=== PATIENT | male | born 1980 | race Caucasian/White ===

== ENCOUNTER 2018-08-12 15:05 | Emergency (ER) | payer SELFPAY ==
[2018-08-12] MEDS ORDERED: Ondansetron PF 4 MG/2 ML Vial ONE (15:30)
[2018-08-12 15:45] LABS: #Basophils 0.1 thou/uL (0.0-0.2); #Monocytes 0.8 thou/uL (0.11-0.59); #Neutrophils 4.8 thou/uL (1.40-6.50); %Eosinophils 0.2 % (0.0-10.0); %Lymphocytes 26.2 % (21.0-51.0); %Monocytes 10.1 % (0.0-10.0); %Neutrophils 62.5 % (42.0-75.0); Hemoglobin 12.3 g/dL (14.0-18.0); Mean Corpuscular HGB CONC 34.1 g/dL (32.0-36.0); Mean Corpuscular Hemoglobin 30.8 pg (27.0-31.0); Mean Corpuscular Volume 90.2 fL (78.0-98.0); Mean Platelet Volume 7.9 fL (7.4-10.4); Platelet Count 226 thou/uL (130-400); RBC Distribution Width 11.6 % (11.5-14.5); White Blood Cell (WBC) Count 7.7 thou/uL (4.8-10.8)
[2018-08-12 16:09] LABS: ALT (SGPT) 15 U/L (8-55); AST (SGOT) 25 U/L (5-34); Albumin 3.8 g/dL (3.5-5.0); Alkaline Phosphatase 75 U/L (40-150); Anion Gap 16 mmol/L (10-20); BUN (Urea Nitrogen) 50 mg/dL (8.9-20.6); Bilirubin, Total 0.8 mg/dL (0.2-1.2); Calc. Creatinine Clearance 0 mL/min (70-130); Carbon Dioxide 30 mmol/L (22-29); Chloride 93 mmol/L (98-107); Estimated GFR-MDRD 27; Globulin 2.7 g/dL (2.4-3.5); Glucose 145 mg/dL (70-105); Potassium 3.9 mmol/L (3.5-5.1); Protein, Total 6.5 g/dL (6.0-8.3); Sodium 135 mmol/L (136-145)
[2018-08-12 16:10] LABS: Base Excess-Venous 7.7 mmol/L (-2.0 to 3.0); Bicarbonate (HCO3v) 28.6 mmol/L (22.0-28.0); CO2 Tension (PvCO2) 28.6 mmHg (40.0-50.0); Calcium, Ionized 0.97 mmol/L (See Comments:); Chloride 94 mmol/L (98-107); Hemoglobin - Calc 13.3 g/dL (14.0-18.0); O2 Tension (PvO2) 46.4 mmHg (35.0-45.0); Potassium 3.3 mmol/L (3.5-5.1); Sodium 132 mmol/L (138-145); T. Carbon Dioxide 29.5 mmol/L (22.0-28.0); pH (Venous) 7.609 (7.320-7.430); vO2 Saturation-calc 89.6 % (60.0-85.0)
[2018-08-12] MEDS ORDERED: D5 1/2 NS w/20 mEq KCL 1,000 ML IV PRN (16:46)
[2018-08-12] MEDS ORDERED: Bisacodyl 5 MG TAB PO PRN (17:02)
[2018-08-12] MEDS ORDERED: Dextrose 5% in Water 1,000 ML IV PRN (17:02)
[2018-08-12] MEDS ORDERED: Ondansetron PF 4 MG/2 ML Vial IVP PRN (17:02)
[2018-08-12] MEDS ORDERED: HumaLOG 300 UNITS/3 ML VIAL SC PRN (17:02)
[2018-08-12] MEDS ORDERED: Dextrose 50% Abboject 50 ML SYRINGE SLOW IVP PRN (17:02)
[2018-08-12] MEDS ORDERED: Acetaminophen 325 MG TAB PO PRN (17:02)
[2018-08-12 17:07] LABS: Bilirubin Negative (Negative); Blood, Urine Negative (Negative); Clarity CLEAR (Clear); Glucose, Urine (Dipstick) Negative (Negative); Leukocyte Negative (Negative); Nitrite Negative (Negative); Protein, Urine (Dipstick) Trace mg/dL (Neg-Trace); Specific Gravity, Urine 1.008 (1.002-1.036); pH, Urine 7.5 (5.0-9.0)
[2018-08-12] MEDS ORDERED: NS 0.9% w/ 20 MEQ KCL 1,000 ML/1,000 ML BAG IV SCH (17:15)
[2018-08-12] MEDS ORDERED: Promethazine HCl 25 MG/ML VIAL ONE (17:15)
[2018-08-12] MEDS ORDERED: Dextrose 50% Abboject 50 ML SYRINGE ONE (17:20)
[2018-08-12] MEDS ORDERED: HUMULIN R 100 UNITS in Sodium Chloride 0.9% 100 ML IVPB SCH (18:00)
[2018-08-12] MEDS ORDERED: Insulin Glargine 18 UNITS in Pre-Filled Syringe SC SCH (18:15)
--- NOTE | 2018-08-12 18:26 | RAD ---
PORTABLE CHEST: 08/12/18 HISTORY: Possible infection. Lungs appear clear. No infiltrate identified. Heart and mediastinum unremarkable. IMPRESSION: No acute findings. POS: [facility]
--- NOTE | 2018-08-12 18:36 | HP ---
PRIMARY CARE PROVIDER: Debra Samayoa. CHIEF COMPLAINT: Nausea and vomiting. HISTORY OF PRESENT ILLNESS: Mr. Powell is a pleasant 38-year-old gentleman, who was seen at [facility] following transfer from [facility] on August 12, 2018. He reports that over the last 4 or 5 days, he has been having severe nausea and vomiting. He reports that he is unable to tolerate any diet. He denies any fevers or chills. He denies any chest pain. Denies any abdominal pain. He reports generalized weakness. REVIEW OF SYSTEMS: All other systems reviewed and found to be negative. PAST MEDICAL HISTORY: Diabetes mellitus type 1; chronic kidney disease stage 3, followed by Dr. 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 PAST SURGICAL HISTORY: Vitrectomy and left below-knee amputation. ALLERGIES: NO KNOWN DRUG ALLERGIES. CURRENT MEDICATIONS: He is on Lantus insulin 36 units at bedtime. He is also on Humalog insulin by sliding scale. SOCIAL HISTORY: He vapes. He denies alcohol use or recreational drug use. FAMILY HISTORY: Hypertension in his father. PHYSICAL EXAMINATION: GENERAL: On examination, Mr. Powell is awake and alert, not in acute distress. VITAL SIGNS: Blood pressure is 163/90, pulse 85, respiratory rate 18, and oxygen saturation 94% on room air. He is afebrile. EYES: No scleral icterus. No conjunctival pallor. ENT: Dry mucosal membranes. No oropharyngeal erythema or exudates. NECK: Supple, nontender, trachea is midline. RESPIRATORY: Accessory muscles of breathing are not active. Chest wall movements are symmetric bilaterally. LUNGS: Clear to auscultation without wheeze, rhonchi, or crepitations. CARDIOVASCULAR: S1 and S2 are heard, regular. Peripheral pulses palpable. No carotid bruit. No pericardial rub. ABDOMEN: Soft, nontender. Bowel sounds heard. No hepatomegaly. No splenomegaly. NEUROLOGIC: Cranial nerves 2 through 12 are intact. MUSCULOSKELETAL: The patient is able to move all four extremities. SKIN: No rashes or subcutaneous nodules. LYMPHATIC: No cervical lymphadenopathy. PSYCHIATRIC: Normal mood. Normal affect. The patient is oriented to person, place, and time. LABORATORY DATA: Mr. Powell's labs and investigations were reviewed. He has normal white count, normocytic anemia with hemoglobin 12.3, normal platelet count. Venous blood gas showing pH 7.6, pCO2 of 28.6, and pO2 of 46.4. Urinalysis that is positive for trace amount of ketones. Beta-hydroxybutyrate is mildly elevated at 1.07. He is hyponatremic with a sodium of 132; hypokalemic with a potassium of 3.3; he has elevated blood urea nitrogen of 50; elevated creatinine of 2.61, last known creatinine 2.77 earlier today and 2.31 on January 15, 2017. Had unremarkable liver profile. Anion gap is 16. Bicarb is elevated at 30. ASSESSMENT AND PLAN: Mr. Powell is a pleasant 38-year-old gentleman, who was seen at [facility] on August 12, 2018. His problem list includes: 1. Nausea and vomiting: Mr. Powell is presenting with nausea and vomiting of unknown etiology, could be secondary to viral gastroenteritis. He will be admitted to the hospital for further management. We will provide him intravenous fluids for dehydration. We will start him on clear fluid diet and see if he can tolerate it. 2. Acute on chronic stage 3 renal failure: We will provide hydration and recheck creatinine. This is most likely prerenal given his history of recent nausea and vomiting. We will also consult Nephrology Service for opinion and help with management. 3. Diabetes mellitus type 1: Initially, concern was regarding whether he had diabetic ketoacidosis. However, given the normal anion gap and elevated bicarb, this does not appear likely. He will be treated with intravenous fluids. He will also receive Lantus insulin. 4. Metabolic alkalosis: Most likely secondary to vomiting. We will provide intravenous hydration and recheck. Many thanks for allowing me to participate in your patient's care. Please feel free to contact me with any questions or concerns. LEVEL OF RISK: Moderate. LEVEL OF COMPLEXITY: Moderate. Job ID: [id number]
[2018-08-12] MEDS ORDERED: Heparin 5,000 UNITS/ML VIAL SC SCH (21:00)
--- NOTE | 2018-08-13 00:15 | CON ---
DATE OF CONSULTATION: REASON FOR CONSULTATION: Elevated creatinine. HISTORY OF PRESENT ILLNESS: This is a very pleasant 38-year-old gentleman being followed at the [facility] in [place]. He presents to the hospital with a 2-day history of nausea and vomiting. The patient denies chest pain. No orthopnea, no PND. The patient has a history of diabetes mellitus and has a history of CKD stage 3 to stage 4. Creatinine has been anywhere from 2 to 3 in the last few years. The patient has had significant vomiting, diarrhea, and an elevated bicarbonate. PAST MEDICAL HISTORY: Significant for diabetes mellitus type 2, history of diabetic, retinal detachment, vitrectomy, history of left knee below-knee amputation, history of cardiac CKD stage 3 to 4. ALLERGIES: NO KNOWN DRUG ALLERGIES. FAMILY HISTORY: Negative for ESRD. HOME MEDICATION: Medication list reviewed. REVIEW OF SYSTEMS: A 15-point review of system was performed negative except for positives noted above. REVIEW OF SYSTEMS: A 12-point review of systems was performed and was negative except for positives noted above. NECK: No swelling or lumps. NOSE: No epistaxis or discharge. EYES: No diplopia or pain. MUSCULOSKELETAL: No joint pain. NEUROPSYCHIATIC SYSTEMS: No suicidal ideation. No ideation. SKIN: Denies any rash or ulcer. CONSTITUTIONAL: No fever or chills. OBJECTIVE: See above. Awake, alert, in no acute distress. VITAL SIGNS: Have been reviewed. GENERAL APPEARANCE AND MENTAL STATUS: Fair. HEAD/NECK: Normocephalic. Atraumatic. EYES: EOMI. No deformity. EARS: Clear. No ulcers. NOSE: Intact. No lesions. MOUTH: Clear. No discharge. THROAT: Clear. No exudate. LUNGS: Clear. No crackles. CARDIAC: S1, S2. No rub. ABDOMEN: Benign. Bowel sounds positive. GENITALIA/RECTUM: Ugarte absent. BACK/EXTREMITIES: Edema 0+. NEUROLOGICAL: Alert and motor intact. LABORATORY DATA: Show potassium is 3.9. ASSESSMENT AND PLAN: 1. Chronic kidney disease, stage 4 with acute kidney injury, likely due to decreased effective arterial blood volume. I will continue normal saline at 50 mL/hour. 2. Hypertension, stable. 3. Anemia, stable. Medication based on GFR appropriate. No indication for dialysis at this time. Job ID: [id number]
[2018-08-13] MEDS ORDERED: Insulin Glargine 20 UNITS in Pre-Filled Syringe SC SCH (21:00)
--- NOTE | 2018-08-14 08:25 | DIS ---
DATE OF ADMISSION: 08/12/2018 DATE OF DISCHARGE: 08/12/2018 The patient left against medical advice on August 12, 2018. HOSPITAL COURSE: Mr. Powell is a pleasant 38-year-old gentleman, who was admitted to [facility] on August 12, 2018 for nausea and vomiting as well as acute on chronic stage 3 renal failure. Please refer to my history and physical note, dated August 12, 2018, for further details. Shortly after admission, Mr. Powell left the hospital against medical advice. Job ID: [id number]
== END 2018-08-12 18:59 | disposition short-term general hospital (02) ==
LOC: ERS 15:05
DX: T73.0XXA Starvation, initial encounter (principal); E87.6 Hypokalemia; F17.210 Nicotine dependence, cigarettes, uncomplicated; E10.9 Type 1 diabetes mellitus without complications; Z79.4 Long term (current) use of insulin; Z79.899 Other long term (current) drug therapy
CPT/HCPCS: 36415; 36416; 71045; 82010; 82330; 82803; 96361; 96374; 96375; J1815; J1825; J2405; J2550; J7050

== ENCOUNTER 2019-07-10 14:07 | Inpatient (IN) | payer MEDICAID, OTHER ==
[2019-07-10 15:44] LABS: Anion Gap 19 mmol/L (10-20); BUN (Urea Nitrogen) 60 mg/dL (8.9-20.6); Calc. Creatinine Clearance 0 mL/min (70-130); Calcium 9.7 mg/dL (7.8-10.44); Carbon Dioxide 24 mmol/L (22-29); Chloride 105 mmol/L (98-107); Estimated GFR-MDRD 17; Glucose 211 mg/dL (70-105); Potassium 3.8 mmol/L (3.5-5.1); Sodium 144 mmol/L (136-145)
[2019-07-10] MEDS ORDERED: Promethazine HCl 25 MG/ML VIAL IM/IV PRN (16:12)
[2019-07-10] MEDS ORDERED: D5 1/2 NS w/20 mEq KCL 1,000 ML IV PRN (16:13)
[2019-07-10] MEDS ORDERED: Sodium Chloride 0.9% 1,000 ML IV PRN ×4 (16:13)
[2019-07-10] MEDS ORDERED: Dextrose 5 %-0.45 % NaCl 1,000 ML IV PRN (16:13)
[2019-07-10] MEDS ORDERED: CCU Electrolyte Replacement 1 EACH IVPB ONE (16:13)
[2019-07-10] MEDS ORDERED: NS 0.9% w/ 20 MEQ KCL 1,000 ML IV PRN ×2 (16:13)
[2019-07-10] MEDS ORDERED: HUMULIN R 100 UNITS in Sodium Chloride 0.9% 100 ML IVPB SCH (16:15)
[2019-07-10] MEDS ORDERED: Loperamide HCl 2 MG CAP PO PRN (16:16)
[2019-07-10] MEDS ORDERED: Ondansetron ODT 4 MG TAB PO PRN (16:16)
[2019-07-10] MEDS ORDERED: Acetaminophen 325 MG TAB PO PRN (16:16)
[2019-07-10] MEDS ORDERED: Bisacodyl 5 MG TAB PO PRN (16:16)
[2019-07-10] MEDS ORDERED: HYDROcodone/Acetaminophen 7.5/325 mg Tablet PO PRN (16:16)
[2019-07-10] MEDS ORDERED: Calcium Carbonate 500 MG ChewTAB PO PRN (16:16)
[2019-07-10] MEDS ORDERED: HYDROcodone/Acetaminophen 5/325 mg Tablet PO PRN (16:16)
[2019-07-10] MEDS ORDERED: Potassium Phosphate 9 MMOL in Sodium Chloride 0.9% 100 ML IVPB PRN (16:17)
[2019-07-10] MEDS ORDERED: CCU ELECTROLYTE REPLACEMENT PROTOCOL FS PRN (16:17)
[2019-07-10] MEDS ORDERED: PHOS-NAK 1 PKT PACK PO PRN ×2 (16:17)
[2019-07-10] MEDS ORDERED: Potassium Chloride 40 MEQ in Premix Bag 1 BAG IVPB PRN (16:17)
[2019-07-10] MEDS ORDERED: Magnesium Oxide 400 MG TAB PO PRN ×2 (16:17)
[2019-07-10] MEDS ORDERED: Potassium Chloride 40 MEQ in Sodium Chloride 0.9% 250 ML 250 ML IVPB PRN (16:17)
[2019-07-10] MEDS ORDERED: Potassium Phosphate 15 MMOL in Sodium Chloride 0.9% 250 ML 250 ML IV PRN (16:17)
[2019-07-10] MEDS ORDERED: Potassium Phosphate 12 MMOL in Sodium Chloride 0.9% 250 ML 250 ML IV PRN (16:17)
[2019-07-10] MEDS ORDERED: Potassium Chloride 20 MEQ TAB PO PRN (16:17)
[2019-07-10] MEDS ORDERED: Magnesium 2 GM/50 ML 2 GM in Premix Bag 1 BAG IVPB PRN (16:17)
--- NOTE | 2019-07-10 16:59 | CT ---
CT OF THE ABDOMEN AND PELVIS WITHOUT IV CONTRAST INDICATION: History of DKA and abdominal pain COMPARISON: CT the abdomen and pelvis without contrast dated November 15, 2011 FINDINGS: The lack of IV contrast limits evaluation of the solid organs of the abdomen and pelvis. ABDOMEN: Lung bases: Clear Liver: No focal lesion. Gallbladder: Normal appearing. Pancreas: Normal. Adrenal glands: Normal. Spleen: Normal. Kidneys and ureters: Normal. No hydronephrosis. Vasculature: There are mild vascular calcifications seen involving the visualized vasculature. Lymph nodes:No lymphadenopathy. Free fluid in abdomen:No free fluid is evident. PELVIS: Small and large bowel: Normal Appendix:Normal Bladder: Normal. Rectal and perirectal soft tissues:Normal. Reproductive structures: Normal. Free fluid in pelvis: No free fluid is evident. Lymphadenopathy pelvis: No lymphadenopathy is evident. Osseous structures: No acute osseous abnormality. No destructive osteolytic or osteoblastic lesion i s identified. There is scattered degenerative and osteoarthritic changes. Soft tissues:Normal. IMPRESSION: 1. No acute abnormality.
[2019-07-10] MEDS ORDERED: D5 1/2 NS w/20 mEq KCL 1,000 ML IV SCH (17:00)
[2019-07-10 17:20] LABS: Anion Gap 19 mmol/L (10-20); BUN (Urea Nitrogen) 60 mg/dL (8.9-20.6); Calc. Creatinine Clearance 0 mL/min (70-130); Calcium 9.7 mg/dL (7.8-10.44); Carbon Dioxide 23 mmol/L (22-29); Chloride 106 mmol/L (98-107); Estimated GFR-MDRD 17; Glucose 159 mg/dL (70-105); Potassium 3.9 mmol/L (3.5-5.1); Sodium 144 mmol/L (136-145)
--- NOTE | 2019-07-10 18:52 | ULT ---
Renal ultrasound: 07/10/2019 COMPARISON:None available HISTORY:Acute kidney insufficiency TECHNIQUE: Multiplanar grayscale sonographic imaging of the kidneys and urinary bladder obtained. FINDINGS: The right kidney [id number] x 4.7 x 5.1 cm and demonstrates no stone, hydronephrosis, or mass. The left kidney [id number] x 5.6 x 5.9 cm and demonstratesno stone, hydronephrosis, or mass lesion. The urinary bladderappears grossly unremarkable. IMPRESSION:No acute findings
[2019-07-10] MEDS ORDERED: Metoclopramide HCl 10 MG/2 ML VIAL ONE (19:38)
[2019-07-10] MEDS: Metoclopramide HCl 10 MG/2 ML VIAL IVP PRN (19:55)
[2019-07-10 20:56] LABS: Anion Gap 17 mmol/L (10-20); BUN (Urea Nitrogen) 59 mg/dL (8.9-20.6); Calc. Creatinine Clearance 0 mL/min (70-130); Calcium 9.2 mg/dL (7.8-10.44); Carbon Dioxide 26 mmol/L (22-29); Chloride 106 mmol/L (98-107); Estimated GFR-MDRD 19; Glucose 178 mg/dL (70-105); Potassium 3.9 mmol/L (3.5-5.1); Sodium 145 mmol/L (136-145)
--- NOTE | 2019-07-10 21:00 | PDOC.HHP ---
Hospitalist HPI - History of Present Illness DKA History of Present Illness: 39-year-old gentleman with past medical history of type I diabetes, hypertension , hyperlipidemia, diabetic gastroparesis, and left below the knee amputation presents with five days of nausea vomiting and diarrhea, diagnosed with diabetic ketoacidosis. Patient was transferred to [facility] on 07/10/2019 with diabetic ketoacidosis. Initially on presentation patient's blood sugars for greater than 600 and he met criteria for diabetic ketoacidosis. I find the patient in the emergency department he is laying flat in bed in mild acute distress, his mother is at bedside able to aid in history. Patient tells me that he is at five days of nausea, vomiting, and diarrhea. Diarrhea has been watery without blood or black. Vomitus has been yellow/ green bilious without blood or black. Patient does state that he has been in contact with sick kids at home. Patient diagnosed with acute kidney injury present on admission. I ordered a CT scan of the abdomen and pelvis, please see full report for details, there is no acute intra-abdominal pathology to explain patient symptoms. Patient with viral gastroenteritis and diabetic ketoacidosis present on admission. Hospitalist ROS - Review of Systems All other systems reviewed; all pertinent +/- noted in HPI/Subj - Medication Medications: Active Medications Generic Name Dose Route Start Last Admin Trade Name Freq PRN Reason Stop Dose Admin Metoclopramide HCl 10 mg 07/10/19 16:12 07/10/19 19:55 Reglan IVP 10 mg Q6H PRN Administration Nausea/Vomiting Hospitalist History - Past Medical History Source: patient, family, old records Cardiac: reports: HTN, Hyperlipidemia Gastrointestinal: reports: Other (DM gastroparesis) Musculoskeletal: reports: Other (Left BKA) - Past Surgical History Past Surgical History: reports: Other (Left BKA) - Social History Smoking Status: Current every day smoker (E-cigarettes) Alcohol: reports: None Drugs: reports: none Living Situation: With Family Domestic Violence: Negative Activity level: uses cane/walker - Exam General Appearance: ill appearing Eye: PERRL ENT: normocephalic atraumatic, moist mucosa Neck: supple, symmetric, no lymphadenopathy Heart: no murmur, no gallops, no rubs, normal peripheral pulses Respiratory: CTAB, no wheezes, no rales, no ronchi, normal chest expansion, no tachypnea Gastrointestinal: soft, non-tender, non-distended, no guarding, no rigidity Extremities: no edema Skin: no lesions, no rashes Skin - other findings: Right foot no lesions or infections Neurological: cranial nerve grossly intact, normal sensation to touch, no focal deficits Musculoskeletal: generalized weakness Musculoskeletal - other findings: Left BKA. Psychiatric: normal affect, normal behavior, A&O x 3 Hospitalist Results - Labs Result Diagrams: 07/10/19 16:42 Lab results: Sodium 144 mmol/L (136-145) 07/10/19 16:42 Potassium 3.9 mmol/L (3.5-5.1) 07/10/19 16:42 Chloride 106 mmol/L (98-107) 07/10/19 16:42 Carbon Dioxide 23 mmol/L (22-29) 07/10/19 16:42 BUN 60 mg/dL (8.9-20.6) H 07/10/19 16:42 Creatinine 3.87 mg/dL (0.7-1.3) H 07/10/19 16:42 Glucose 159 mg/dL (70-105) H 07/10/19 16:42 Calcium 9.7 mg/dL (7.8-10.44) 07/10/19 16:42 - Radiology Interpretation CT scan - abdomen Status: image reviewed by sc Hospitalist H&P A/P - Problem (1) DKA (diabetic ketoacidoses) Code(s): E11.10 - TYPE 2 DIABETES MELLITUS WITH KETOACIDOSIS WITHOUT COMA Status: Acute (2) HTN (hypertension) Code(s): I10 - ESSENTIAL (PRIMARY) HYPERTENSION Status: Acute (3) HLD (hyperlipidemia) Code(s): E78.5 - HYPERLIPIDEMIA, UNSPECIFIED Status: Acute (4) Gastroparesis due to DM Code(s): E11.43 - TYPE 2 DIABETES W DIABETIC AUTONOMIC (POLY)NEUROPATHY; K31.84 - GASTROPARESIS Status: Acute (5) Viral gastroenteritis Code(s): A08.4 - VIRAL INTESTINAL INFECTION, UNSPECIFIED Status: Acute (6) GIOVANA (acute kidney injury) Code(s): N17.9 - ACUTE KIDNEY FAILURE, UNSPECIFIED Status: Acute (7) Diabetes Code(s): E11.9 - TYPE 2 DIABETES MELLITUS WITHOUT COMPLICATIONS Status: Acute Qualifiers: Diabetes mellitus type: type 1 (8) Intractable nausea and vomiting Code(s): R11.2 - NAUSEA WITH VOMITING, UNSPECIFIED Status: Acute - Plan Plan: Plan: admit to intermediate medical care unit DKA protocol insulin drip replace electrolytes as needed IV fluid resuscitation for acute kidney injury Renal US negative for obstructive process to explain GIOVANA CT scan of of the abdomen and pelvis demonstrates no acute intra-abdominal pathology to to explain nausea, vomiting, and diarrhea viral gastroenteritis will need to run its course Stress reactive leukocytosis at 14k from transferring facility no indication for antibiotics Add UA and CXR No skin infections on the feet or stump continue home medications as able Hold Diogo inh and statin with GIOVANA symptomatic control of nausea and vomiting Patient with DM gastroparesis blood pressure control blood sugar control GI prophylaxis DVT prophylaxis
[2019-07-10] MEDS ORDERED: Nicotine 14 MG PATCH TD PRN (21:21)
[2019-07-10] MEDS ORDERED: Ondansetron PF 4 MG/2 ML Vial ONE (21:59)
--- NOTE | 2019-07-10 22:18 | RAD ---
Portable frontal chest radiograph: 07/10/2019 COMPARISON: 07/10/2019 HISTORY: Short of breath FINDINGS: Lungs are clear. Heart and mediastinal contours appear within normal limits. IMPRESSION: No acute findings.
[2019-07-10] MEDS ORDERED: DC Electrolyte Protocol FS ONE (23:14)
[2019-07-10] MEDS ORDERED: Insulin Regular 300 UNITS/3 ML VIAL SC PRN (23:16)
[2019-07-10] MEDS ORDERED: Dextrose 50% Abboject 50 ML SYRINGE SLOW IVP PRN (23:16)
[2019-07-10] MEDS ORDERED: Dextrose 5% in Water 1,000 ML IV PRN (23:16)
--- NOTE | 2019-07-10 23:19 | PDOC.EVN ---
Event Note - Event Note Event Note: Will change Insulin drip tp SQ. Added sliding scale. DC electrolye protocol
[2019-07-10] MEDS ORDERED: Insulin Glargine 10 UNITS in Pre-Filled Syringe 1 EACH SC SCH (23:45)
[2019-07-11] MEDS: Ondansetron PF 4 MG/2 ML Vial IVP PRN ×3 (00:01→16:28)
[2019-07-11 00:30] LABS: Bacteria/HPF None Seen HPF (None Seen); Bilirubin Negative (Negative); Blood, Urine Trace (Negative); Clarity Clear (Clear); Glucose, Urine (Dipstick) >=1000 mg/dL (Negative); Leukocyte Negative Leu/uL (Negative); Nitrite Negative (Negative); Protein, Urine (Dipstick) 70 mg/dL (Neg-Trace); RBC/HPF 0-3 HPF (0-3); Squamous Epithelial None Seen HPF (0-3); Urobilinogen Normal mg/dL (Less than 2); WBC/HPF 0-3 HPF (0-3)
[2019-07-11 00:32] LABS: Urine Culture Reflex No No
[2019-07-11] MEDS ORDERED: Metoprolol Tartrate 25 MG TAB PO SCH (01:00)
[2019-07-11] MEDS: Heparin 5,000 UNITS/ML VIAL SC SCH ×4 (01:08→21:14)
[2019-07-11] MEDS: Sodium Chloride 0.45% 1,000 ML IV SCH ×4 (01:20→18:13)
[2019-07-11] MEDS: Famotidine 20 MG TAB PO SCH ×2 (01:44→21:12)
[2019-07-11] MEDS: Promethazine HCl 25 MG in Sodium Chloride 0.9% 50 ML IVPB PRN ×3 (03:23→19:39)
[2019-07-11] MEDS: Insulin Regular 300 UNITS/3 ML VIAL SC PRN ×3 (05:50→13:08)
[2019-07-11 06:19] LABS: #Lymphocytes 1.7 thou/uL (1.20-3.40); #Monocytes 0.9 thou/uL (0.11-0.59); #Neutrophils 13.3 thou/uL (1.40-6.50); %Basophils 0.1 % (0.0-1.0); %Eosinophils 0.1 % (0.0-10.0); %Lymphocytes 10.8 % (21.0-51.0); %Monocytes 5.9 % (0.0-10.0); %Neutrophils 83.2 % (42.0-75.0); Hemoglobin 10.9 g/dL (14.0-18.0); Mean Corpuscular HGB CONC 32.3 g/dL (32.0-36.0); Mean Corpuscular Hemoglobin 30.2 pg (27.0-31.0); Mean Corpuscular Volume 93.3 fL (78.0-98.0); Mean Platelet Volume 9.1 fL (7.4-10.4); Platelet Count 208 thou/uL (130-400); RBC Distribution Width 11.9 % (11.5-14.5); Red Blood Cell (RBC) Count 3.62 mill/uL (4.70-6.10)
[2019-07-11 06:48] LABS: Anion Gap 17 mmol/L (10-20); BUN (Urea Nitrogen) 57 mg/dL (8.9-20.6); Calc. Creatinine Clearance 0 mL/min (70-130); Calcium 9.1 mg/dL (7.8-10.44); Carbon Dioxide 27 mmol/L (22-29); Chloride 101 mmol/L (98-107); Estimated GFR-MDRD 20; Glucose 232 mg/dL (70-105); Potassium 3.9 mmol/L (3.5-5.1); Sodium 141 mmol/L (136-145)
[2019-07-11] MEDS ORDERED: Insulin Glargine 10 UNITS in Pre-Filled Syringe 1 EACH SC SCH (09:00)
[2019-07-11] MEDS: Aspirin Chewable 81 MG TAB PO SCH ×2 (09:17→16:51)
[2019-07-11] MEDS: Metoprolol Tartrate 25 MG TAB PO SCH ×3 (09:17→21:13)
[2019-07-11] MEDS: Insulin Glargine 14 UNITS in Pre-Filled Syringe 1 EACH SC SCH (09:22)
[2019-07-11 10:35] VITALS: BMI 26.8
--- NOTE | 2019-07-11 15:22 | CON ---
DATE OF CONSULTATION: REASON FOR CONSULTATION: CKD. HISTORY OF PRESENT ILLNESS: This is a very pleasant 39-year-old gentleman, presented with a creatinine of 4, which dropped to 3.3. The patient has known CKD and has been followed up in the CKD, iatrogenic. The patient was admitted for DKA with nausea and vomiting. The patient's creatinine has improved over the last few days. PAST MEDICAL HISTORY: Hypertension, diabetes mellitus, history of diarrhea, gastroparesis, left below-knee amputation, and history of left BKA. SOCIOECONOMIC HISTORY: No alcohol or drug abuse. FAMILY HISTORY: Negative for ESRD. ALLERGIES: REVIEWED. MEDICATIONS: Home medications list reviewed. Hospital medications list reviewed. REVIEW OF SYSTEMS: Fifteen-point review of system was performed and negative except for positives noted above. HEENT: Eyes intact, no diplopia. Ears: No hearing loss or earache. Nose: No discharge or bleeding. CHEST: No cough or phlegm. ABDOMEN: No nausea or vomiting. GENITOURINARY: No hematuria. No Ugarte catheter. MUSCULOSKELETAL: No low back pain. No joint swelling or pain. NEUROLOGICAL: No syncope. No seizures. SKIN: No complaints of rash or itching. PSYCHIATRIC: No depression. CONSTITUTIONAL: No weight loss or loss of appetite. PHYSICAL EXAMINATION: GENERAL: The patient is awake and alert. VITAL signs: Afebrile, pulse 95, breathing at 16, blood pressure 160/84. HEENT: Head normocephalic and atraumatic. Eyes intact, no ulcers. Nose intact, no ulcers. Ears intact, no ulcers. NECK: Supple. No JVD. CHEST: Symmetrical and clear. CARDIOVASCULAR: Shows S1 and S2, no rub, no murmur. GASTROINTESTINAL: Abdomen is soft, bowel sounds positive. EXTREMITIES: Show no edema or ulcers. SKIN: Shows no rash or petechiae. MUSCULOSKELETAL: Shows no joint swelling or stiffness. GENITOURINARY: Shows no Ugarte or CVA tenderness. NEUROLOGIC: Motor intact. Cranial nerves intact. LABORATORY DATA: Reviewed. ASSESSMENT AND PLAN: 1. Stage 4 chronic kidney disease, stable. 2. Hypertension, stable. I would recommend titrating medications. 3. Acute kidney injury, improved. No indication for dialysis. Job ID: [id number]
--- NOTE | 2019-07-11 15:51 | PDOC.HOSPP ---
- Subjective Encounter Date: 07/11/19 Encounter Time: 11:56 Subjective: still nauseated. no po intake yet. d/w pt, mom and rn. - Objective Vital Signs & Weight: Vital Signs (12 hours) Temp Pulse Resp BP Pulse Ox 07/11/19 11:57 98.7 F 94 20 178/89 H 07/11/19 08:09 98.8 F 87 20 164/84 H 96 07/11/19 04:35 98.8 F 91 18 170/83 H 95 07/11/19 04:00 98 Weight Weight 250 lb 0.067 oz I&O: 07/10/19 07/11/19 07/12/19 06:59 06:59 06:59 Intake Total 2550 Output Total 1800 Balance 750 Result Diagrams: 07/11/19 05:54 07/11/19 05:54 Additional Labs: Accuchecks 07/11/19 07/11/19 07/11/19 11:18 08:12 05:17 POC Glucose 158 H 202 H 235 H 07/10/19 07/10/19 07/10/19 23:24 22:32 21:28 POC Glucose 177 H 158 H 200 H 07/10/19 07/10/19 07/10/19 20:23 19:20 17:48 POC Glucose 157 H 174 H 143 H 07/10/19 16:59 POC Glucose 139 H Hospitalist ROS - Medication Medications: Active Medications Generic Name Dose Route Start Last Admin Trade Name Freq PRN Reason Stop Dose Admin Aspirin 81 mg 07/11/19 09:00 07/11/19 09:17 Aspirin Chewable PO 81 mg DAILY FABIO Administration Famotidine 20 mg 07/10/19 21:00 07/11/19 01:44 Pepcid PO Not Given QPM FABIO Heparin Sodium (Porcine) 5,000 units 07/10/19 21:00 07/11/19 09:17 Heparin SC 5,000 units TID FABIO Administration Sodium Chloride 1,000 mls @ 150 mls/hr 07/10/19 23:30 07/11/19 09:15 1/2 Normal Saline IV 1,000 mls .Q6H40M FABIO Administration Promethazine HCl 25 mg/ Sodium 51 mls @ 204 mls/hr 07/11/19 03:02 07/11/19 13 :09 Chloride IVPB 51 mls Q6H PRN Administration Nausea Insulin Glargine 14 units/ 0.14 mls @ 0 mls/hr 07/11/19 09:00 07/11/19 09:22 Miscellaneous Medication SC 0.14 mls QAM FABIO Administration Insulin Human Regular 0 units 07/10/19 23:16 07/11/19 13:08 Humulin R SC 2 unit .MODERATE SLIDING SC PRN Administration Moderate Correctional Scale Metoclopramide HCl 10 mg 07/10/19 16:12 07/10/19 19:55 Reglan IVP 10 mg Q6H PRN Administration Nausea/Vomiting Metoprolol Tartrate 25 mg 07/11/19 09:00 07/11/19 09:17 Lopressor PO 25 mg BID FABIO Administration Ondansetron HCl 4 mg 07/10/19 16:16 07/11/19 09:15 Zofran IVP 4 mg Q6H PRN Administration Nausea/Vomiting Sodium Chloride 10 ml 07/11/19 09:00 07/11/19 09:21 Flush - Normal Saline IVF Not Given Q12HR FABIO - Exam General Appearance: NAD, awake alert Eye: PERRL ENT: normocephalic atraumatic Neck: supple Heart: RRR Respiratory: CTAB Gastrointestinal: normal bowel sounds Hosp A/P - Plan (1) DKA (diabetic ketoacidoses) Code(s): E11.10 - TYPE 2 DIABETES MELLITUS WITH KETOACIDOSIS WITHOUT COMA Status: Acute (2) HTN (hypertension) Code(s): I10 - ESSENTIAL (PRIMARY) HYPERTENSION Status: Acute (3) HLD (hyperlipidemia) Code(s): E78.5 - HYPERLIPIDEMIA, UNSPECIFIED Status: Acute (4) Gastroparesis due to DM Code(s): E11.43 - TYPE 2 DIABETES W DIABETIC AUTONOMIC (POLY)NEUROPATHY; K31.84 - GASTROPARESIS Status: Acute (5) Viral gastroenteritis Code(s): A08.4 - VIRAL INTESTINAL INFECTION, UNSPECIFIED Status: Acute (6) GIOVANA (acute kidney injury) Code(s): N17.9 - ACUTE KIDNEY FAILURE, UNSPECIFIED Status: Acute (7) Diabetes Code(s): E11.9 - TYPE 2 DIABETES MELLITUS WITHOUT COMPLICATIONS Status: Acute Qualifiers: Diabetes mellitus type: type 1 (8) Intractable nausea and vomiting Code(s): R11.2 - NAUSEA WITH VOMITING, UNSPECIFIED Status: Acute DKA protocol insulin drip---STopped replace electrolytes as needed IV fluid resuscitation for acute kidney injury Renal US negative for obstructive process to explain GIOVANA---neg CT scan of of the abdomen and pelvis demonstrates no acute intra-abdominal pathology to to explain nausea, vomiting, and diarrhea viral gastroenteritis will need to run its course Stress reactive leukocytosis at 14k---->16K on no indication for antibiotics DM gastroparesis blood pressure control blood sugar control am labs CLD -- advqance to diabetic diet, when tolerated.
[2019-07-11] MEDS: Metoclopramide HCl 10 MG/2 ML VIAL IVP PRN (16:28)
[2019-07-11] MEDS ORDERED: Insulin Glargine 14 UNITS in Pre-Filled Syringe 1 EACH SC SCH (21:00)
[2019-07-11] MEDS ORDERED: FLU VACC QS2019-20(6MOS UP)/PF 60 MCG/0.5 ML SYRINGE IM ONE (21:00)
[2019-07-12] MEDS: Ondansetron PF 4 MG/2 ML Vial IVP PRN ×2 (00:04→10:25)
[2019-07-12] MEDS: Metoclopramide HCl 10 MG/2 ML VIAL IVP PRN ×2 (00:04→07:57)
[2019-07-12] MEDS ORDERED: hydrALAZINE 20 MG/ML VIAL SLOW IVP SCH (00:45)
[2019-07-12] MEDS: Sodium Chloride 0.45% 1,000 ML IV SCH ×2 (01:18→08:49)
[2019-07-12] MEDS: Promethazine HCl 25 MG in Sodium Chloride 0.9% 50 ML IVPB PRN (04:44)
[2019-07-12] MEDS: Insulin Regular 300 UNITS/3 ML VIAL SC PRN ×2 (05:30→12:51)
[2019-07-12 05:51] LABS: #Lymphocytes 1.1 thou/uL (1.20-3.40); #Monocytes 0.7 thou/uL (0.11-0.59); #Neutrophils 6.8 thou/uL (1.40-6.50); %Basophils 0.3 % (0.0-1.0); %Eosinophils 0.1 % (0.0-10.0); %Lymphocytes 12.6 % (21.0-51.0); %Monocytes 8.2 % (0.0-10.0); %Neutrophils 78.8 % (42.0-75.0); Hemoglobin 10.4 g/dL (14.0-18.0); Mean Corpuscular HGB CONC 33.5 g/dL (32.0-36.0); Mean Corpuscular Hemoglobin 31.3 pg (27.0-31.0); Mean Corpuscular Volume 93.4 fL (78.0-98.0); Mean Platelet Volume 9.2 fL (7.4-10.4); Platelet Count 176 thou/uL (130-400); RBC Distribution Width 11.5 % (11.5-14.5); Red Blood Cell (RBC) Count 3.33 mill/uL (4.70-6.10); White Blood Cell (WBC) Count 8.6 thou/uL (4.8-10.8)
[2019-07-12] MEDS ORDERED: Labetalol HCl 100 MG/20 ML VIAL SLOW IVP PRN (05:53)
[2019-07-12 06:11] LABS: Anion Gap 17 mmol/L (10-20); BUN (Urea Nitrogen) 42 mg/dL (8.9-20.6); Calc. Creatinine Clearance 67 mL/min (70-130); Calcium 8.3 mg/dL (7.8-10.44); Carbon Dioxide 26 mmol/L (22-29); Chloride 101 mmol/L (98-107); Estimated GFR-MDRD 31; Glucose 186 mg/dL (70-105); Potassium 3.6 mmol/L (3.5-5.1); Sodium 140 mmol/L (136-145)
[2019-07-12] MEDS: Heparin 5,000 UNITS/ML VIAL SC SCH (08:47)
[2019-07-12] MEDS: Insulin Glargine 14 UNITS in Pre-Filled Syringe 1 EACH SC SCH (08:50)
--- NOTE | 2019-07-12 11:39 | PRG ---
DATE OF SERVICE: 07/12/2019 SUBJECTIVE: A 39-year-old male being seen for acute kidney injury. The patient denied any nausea, vomiting, or chest pain. PHYSICAL EXAMINATION: General: The patient is awake and alert. VITAL SIGNS: Afebrile, pulse 75, breathing at 16, and blood pressure 145/86. HEENT: Head normocephalic and atraumatic. Eyes intact, no ulcers. Nose intact, no ulcers. Ears intact, no ulcers. NECK: Supple. No JVD. CHEST: Symmetrical and clear. CARDIOVASCULAR: Shows S1 and S2, no rub, no murmur. GASTROINTESTINAL: Abdomen is soft, bowel sounds positive. EXTREMITIES: Show no edema or ulcers. SKIN: Shows no rash or petechiae. MUSCULOSKELETAL: Shows no joint swelling or stiffness. GENITOURINARY: Shows no Ugarte or CVA tenderness. NEUROLOGIC: Motor intact. Cranial nerves intact. LABORATORY DATA: Reviewed. ASSESSMENT AND PLAN: 1. Acute kidney injury, improved. 2. Hypertension, stable. 3. Anemia, stable. 4. Chronic kidney disease stage 3, stable. No indication for dialysis. Continue hydration. Job ID: [id number]
[2019-07-12 11:59] VITALS: BP 151/68; TEMP 99.1
[2019-07-12] MEDS: Metoprolol Tartrate 25 MG TAB PO SCH (13:41)
[2019-07-12] MEDS: Aspirin Chewable 81 MG TAB PO SCH (13:41)
--- NOTE | 2019-07-12 15:24 | DIS ---
DATE OF ADMISSION: 07/10/2019 DATE OF DISCHARGE: 07/12/2019 DISCHARGE DIAGNOSES: 1. DKA. 2. Hypertension, hyperlipidemia, gastroparesis due to type 2 diabetes mellitus. 3. Viral gastroenteritis, acute kidney injury. 4. Intractable nausea, vomiting. DISCHARGE MEDICATIONS: 1. Zofran 4 mg every 6 hours as needed for nausea and vomiting. 2. Aspirin 81 mg daily. 3. Lantus 36 units at nighttime. 4. Sliding scale lispro insulin. 5. Lisinopril 20 mg daily. 6. Losartan 25 mg daily. 7. Reglan 10 mg daily. 8. Toprol-XL 12.5 mg daily. PHYSICAL EXAMINATION: On the day of discharge; GENERAL: The patient may still have some nausea. His creatinine is improved. CARDIOVASCULAR: Regular rate and rhythm without murmurs, rubs, or gallops. LUNGS: Clear to auscultation bilaterally. No wheezing, rales, or rhonchi. ABDOMEN: Soft, nontender, nondistended. Good bowel sounds. HOSPITAL COURSE: This is a 39-year-old male with a history of type 1 diabetes mellitus, hypertension, gastroparesis, and below-knee amputation, admitted with nausea, vomiting, diarrhea consistent with DKA. The patient was started on DKA protocol. While the workup was still ongoing, he did receive aggressive IV hydration and his creatinine improved from 4.0 to 2.32. On the , the patient wants to go home. He does not want to continue his medical management currently. Despite him nauseated and still not taking any meals, he preferred to be at home and take the nausea medications. The patient is discharged, however, his workup is incomplete and he has not started to have any p.o. intake yet. DISCHARGE INSTRUCTIONS: 1. Activity as tolerated. 2. Diabetic diet. 3. Follow up with primary care physician within a week. 4. If he still have ongoing nausea, not able to have p.o. intake, consider coming back to the ER. TIME SPENT: Discharge time took over 30 minutes. Job ID: [id number]
--- NOTE | 2019-07-13 06:23 | PQF ---
YUNIOR HARRIS SOUNDARI [id number] [facility] [id number] CLINICAL DOCUMENTATION CLARIFICATION FORM: POST DISCHARGE Addendum to original discharge summary date: ____ Late entry note date: __ DATE: 07/13/2019 ATTN: Marcy Davis Please exercise your independent, professional judgment in responding to the clarification form. Clinical indicators are provided on the bottom of this form for your review In your clinical opinion based on clinical findings below, can you please identify the condition as the reasonf for Inpatient admission if due to: Please check appropriate box(s): [ x] DKA [ ] GIOVANA [ x] Viral Gastroenteritis [ ] Other diagnosis [ ] Unable to determine In addition, please specify: Present on Admission (POA): [ ] Yes [ ] No [ ] Unable to determine For continuity of documentation, please document condition throughout progress notes and discharge summary. Thank You. CLINICAL INDICATORS - SIGNS / SYMPTOMS / LABS Laboratory 07/10 Glucose 242; 139; 143; 174 Laboratory 07/10 Creatine 4.00; 3.87, BUN 60 H&P p1 07/10 Dr Fay presented five days of nausea, vomiting and diarrhea H&P p1 07/10 Dr Fay transferred to [facility] on 2019 with diabetic ketoacidosis. Initially on presentation patients blood sugars for greater than 600 and he met criteria for diabetic ketoacidosis. H&P p1 07/10 Dr Fay Patient tells me that he is at five days of nausea, vomiting, and diarrhea. Diarrhea has been watery without blood or black. Vomitus has been yellow/ green bilious without blood or black. Patient does state that he has been in contact with sick kids at home H&P p1 07/10 Dr Fay Patient diagnosed with acute kidney injury present on admission. H&P p1 07/10 Dr Fay Patient with viral gastroenteritis and diabetic ketoacidosis present on admission. RISK FACTORS H&P p1 07/10 Type 1DM H&P p1 07/10 HTN H&P p1 07/10 Hyperlipidemia H&P p1 07/10 Diabetic Gastroparesis H&P p1 07/10 CKD TREATMENTS: JUL 15 Insulin 14 units drip JUL 15 IV Reglan 10mg JUL 15 IV Zofran 4mg JUL 15 IVF NS Bolus 1L Ordered a CT scan of the abdomen and pelvis 07/10 Ordered a Renal US 07/10 H&P p4 07/10 Symptomatic control for N/V H&P p4 07/10 blood sugar control H&P p4 07/10 replaced electrolytes as needed H&P p4 07/10 IV fluid resuscitation Nephrology consult 07/11 Suleiman Blake (This form is maintained as a part of the permanent medical record) 2014 [employer] All Rights Reserved [email or web address]
== END 2019-07-12 13:28 | disposition home or self-care (01) | DRG 391 ==
LOC: ERS 14:07 → ERHOLD 16:40 → 3SE 07-11 00:17
PROVIDERS: ADMIT Internal Medicine; ATTEND Internal Medicine
DX: A08.4 Viral intestinal infection, unspecified (principal); E10.10 Type 1 diabetes mellitus with ketoacidosis without coma; N17.9 Acute kidney failure, unspecified; N18.4 Chronic kidney disease, stage 4 (severe); E10.43 Type 1 diabetes mellitus with diabetic autonomic (poly)neuropathy; K31.84 Gastroparesis; E78.5 Hyperlipidemia, unspecified; I10 Essential (primary) hypertension; F17.290 Nicotine dependence, other tobacco product, uncomplicated; E10.59 Type 1 diabetes mellitus with other circulatory complications; E10.22 Type 1 diabetes mellitus with diabetic chronic kidney disease; Z89.512 Acquired absence of left leg below knee; Z79.899 Other long term (current) drug therapy; Z79.4 Long term (current) use of insulin; Z79.82 Long term (current) use of aspirin
CPT/HCPCS: 36415; 36416; 71045; 74176; 76770; 80048; 81001; 85025; 96365; 96366; J0360; J1644; J1815; J2405; J2550; J2765

== ENCOUNTER 2019-12-03 22:13 | Inpatient (IN) | payer OTHER ==
[2019-12-03 22:51] LABS: #Lymphocytes 1.1 thou/uL (1.20-3.40); #Monocytes 0.4 thou/uL (0.11-0.59); %Basophils 0.1 % (0.0-1.0); %Eosinophils 0.1 % (0.0-10.0); %Monocytes 3.9 % (0.0-10.0); %Neutrophils 85.9 % (42.0-75.0); Hemoglobin 11.6 g/dL (14.0-18.0); Mean Corpuscular HGB CONC 33.4 g/dL (32.0-36.0); Mean Corpuscular Hemoglobin 30.7 pg (27.0-31.0); Mean Corpuscular Volume 91.7 fL (78.0-98.0); Platelet Count 229 thou/uL (130-400); RBC Distribution Width 11.9 % (11.5-14.5); Red Blood Cell (RBC) Count 3.78 mill/uL (4.70-6.10); White Blood Cell (WBC) Count 10.5 thou/uL (4.8-10.8)
[2019-12-03 23:13] LABS: ALT (SGPT) 18 U/L (8-55); AST (SGOT) 23 U/L (5-34); Albumin 4.2 g/dL (3.5-5.0); Alkaline Phosphatase 86 U/L (40-110); Anion Gap 31 mmol/L (10-20); BUN (Urea Nitrogen) 70 mg/dL (8.9-20.6); Bilirubin, Total 0.5 mg/dL (0.2-1.2); Calc. Creatinine Clearance 0 mL/min (70-130); Calcium 9.9 mg/dL (7.8-10.44); Carbon Dioxide 15 mmol/L (22-29); Chloride 97 mmol/L (98-107); Estimated GFR-MDRD 17; Globulin 3.5 g/dL (2.4-3.5); Glucose 439 mg/dL (70-105); Potassium 4.5 mmol/L (3.5-5.1); Protein, Total 7.7 g/dL (6.0-8.3); Sodium 138 mmol/L (136-145)
[2019-12-03 23:15] LABS: Actual Bicarbonate (HCO3a) 15.4 mEq/L (22-28); Analyzer IN Cardio ER; Base Excess (BEa) -5.2 mEq/L (-2.0 to +3.0); Calcium, Ionized (arterial) 1.13 mmol/L (1.12-1.30); Carboxyhemoglobin (COHb) 0.3 gm% (0.0-3.0); Hemoglobin (Hb) 12.1 g/dL (14.0-18.0); O2 Tension (PaO2), arterial 107.7 mmHg (80.0-100.0); Potassium - ABG Lab 4.15 mmol/L (3.70-5.30); pH, Arterial 7.53 (7.35-7.45)
[2019-12-03 23:16] LABS: Puncture Site RR
[2019-12-03] MEDS ORDERED: Ondansetron PF 4 MG/2 ML Vial ONE ×2 (23:19)
[2019-12-03] MEDS ORDERED: Insulin Regular 100 units/100 ml in NS IVPB SCH (23:30)
[2019-12-04] MEDS ORDERED: Ondansetron PF 4 MG/2 ML Vial ONE (01:05)
[2019-12-04] MEDS ORDERED: Sodium Chloride 0.9% 1,000 ML IV PRN ×7 (01:34→02:59)
[2019-12-04] MEDS ORDERED: Dextrose 5 %-0.45 % NaCl 1,000 ML IV PRN ×2 (01:34→02:59)
[2019-12-04] MEDS ORDERED: NS 0.9% w/ 20 MEQ KCL 1,000 ML/1,000 ML BAG IV PRN ×2 (01:34)
[2019-12-04] MEDS ORDERED: D5 1/2 NS w/20 mEq KCL 1,000 ML IV PRN ×2 (01:34→02:59)
[2019-12-04] MEDS ORDERED: Dextrose 5% in Water 1,000 ML IV PRN ×2 (01:34→13:12)
[2019-12-04] MEDS ORDERED: Dextrose 50% Abboject 50 ML SYRINGE SLOW IVP PRN ×2 (01:34→13:12)
[2019-12-04] MEDS ORDERED: Electrolyte Replacement Protocol FS PRN ×3 (01:36→03:09)
[2019-12-04] MEDS ORDERED: HUMULIN R 100 UNITS in Sodium Chloride 0.9% 100 ML IVPB SCH ×2 (01:45→03:00)
[2019-12-04] MEDS ORDERED: ADD ELECTROLYTE REPLACEMENT SET TO PROFILE FS SCH (01:45)
[2019-12-04 01:46] VITALS: BMI 25.4
[2019-12-04] MEDS: Sodium Chloride 0.9% 1,000 ML IV PRN ×2 (02:00→04:00)
[2019-12-04] MEDS ORDERED: Ondansetron PF 4 MG/2 ML Vial IVP PRN (02:59)
[2019-12-04] MEDS ORDERED: Electrolyte Replacement Protoc 1 EACH EACH IVPB ONE (02:59)
[2019-12-04] MEDS ORDERED: Labetalol HCl 100 MG/20 ML VIAL SLOW IVP PRN (02:59)
[2019-12-04] MEDS ORDERED: NS 0.9% w/ 20 MEQ KCL 1,000 ML IV PRN ×2 (02:59)
[2019-12-04] MEDS ORDERED: Acetaminophen 500 MG TAB PO PRN (02:59)
[2019-12-04] MEDS ORDERED: Ondansetron ODT 4 MG TAB PO PRN ×2 (02:59→16:41)
[2019-12-04 03:40] LABS: Hemoglobin 10.5 g/dL (14.0-18.0); Mean Corpuscular HGB CONC 34.2 g/dL (32.0-36.0); Mean Corpuscular Hemoglobin 31.3 pg (27.0-31.0); Mean Corpuscular Volume 91.6 fL (78.0-98.0); Platelet Count 198 thou/uL (130-400); RBC Distribution Width 11.9 % (11.5-14.5); Red Blood Cell (RBC) Count 3.35 mill/uL (4.70-6.10); White Blood Cell (WBC) Count 10.1 thou/uL (4.8-10.8)
[2019-12-04 04:05] LABS: Anion Gap 19 mmol/L (10-20); BUN (Urea Nitrogen) 70 mg/dL (8.9-20.6); Calc. Creatinine Clearance 44 mL/min (70-130); Calcium 8.6 mg/dL (7.8-10.44); Carbon Dioxide 22 mmol/L (22-29); Chloride 104 mmol/L (98-107); Estimated GFR-MDRD 20; Glucose 233 mg/dL (70-105); Potassium 3.8 mmol/L (3.5-5.1); Sodium 141 mmol/L (136-145)
--- NOTE | 2019-12-04 04:27 | HP ---
PRIMARY CARE PROVIDER: Debra Samayoa. CHIEF COMPLAINT: Nausea and vomiting. HISTORY OF PRESENT ILLNESS: This is a 39-year-old male who presents to [facility] complaining of protracted nausea and vomiting over the last 2 to 3 days. The patient with a significant history of diabetes mellitus type 2, insulin requiring with recent admission in June 2019 for diabetic ketoacidosis. The patient states he has been unable to eat anything since three days prior to this evaluation and has been attempting to maintain water intake. The patient admits to feeling generally weak without unilateral weakness. The patient denied any fever, chills, cough, or shortness of breath. The patient denied any diarrhea or dysuria. The patient states he has been compliant with his diabetic regimen including insulin dosing. In the emergency room, the patient underwent general evaluation and was discovered in DKA, initiated on insulin infusion in addition to receiving intravenous normal saline x2 L and antiemetics with Zofran. PAST MEDICAL HISTORY: 1. Diabetes mellitus type 2, insulin requiring with diabetic nephropathy. 2. Diabetic retinopathy. 3. Hypertension. 4. Legal blindness. 5. Diabetes mellitus, type 1. PAST SURGICAL HISTORY: 1. Status post left ifiwo-ect-dvif amputation. 2. Status post bilateral eye surgery due to diabetic retinopathy. CURRENT MEDICATIONS: 1. Aspirin 81 mg p.o. daily. 2. Humalog 50/50 mix sliding scale. 3. Lantus 36 units subcutaneously daily. 4. Lisinopril 20 mg p.o. daily. 5. Metoprolol tartrate 12.5 mg p.o. b.i.d. 6. Lovastatin 20 mg p.o. daily. 7. Metoclopramide 10 mg p.o. daily. ALLERGIES: NO KNOWN DRUG ALLERGIES. FAMILY HISTORY: Positive for diabetes mellitus. SOCIAL HISTORY: Resides in [place], [place]. Disabled. Smokes E-cigarettes. No alcohol or illicit drug use. Ambulates with use of a cane or walker due to a left aoibz-nst-vuww amputation. REVIEW OF SYSTEMS: CONSTITUTIONAL: Negative for weight loss or gain, ability to conduct usual activities. SKIN: Negative for rash, itching. EYES: Negative for double vision, pain. ENT/MOUTH: Negative for nose bleeding, neck stiffness, pain, tenderness. CARDIOVASCULAR: Negative for palpitations, dyspnea on exertion, orthopnea. RESPIRATORY: Negative for shortness of breath, wheezing, cough, hemoptysis, fever or night sweats. GASTROINTESTINAL: Negative for poor appetite, abdominal pain, heartburn, nausea, vomiting, constipation, or diarrhea. GENITOURINARY: Negative for urgency, frequency, dysuria, nocturia. MUSCULOSKELETAL: Negative for pain, swelling. NEUROLOGIC/PSYCHIATRIC: Negative for anxiety, depression. ALLERGY/IMMUNOLOGIC: Negative for skin rash, bleeding tendency. Otherwise, negative except as stated per HPI. PHYSICAL EXAMINATION: VITAL SIGNS: On admission, blood pressure 174/90, pulse 106, respiratory rate 22, temperature 97.5 degrees Fahrenheit, and O2 saturation 100% on room air. GENERAL APPEARANCE: This is a 39-year-old male, ill appearing, lethargic in the Critical Care Unit. HEENT: Pupils are equal, round, reactive to light and accommodation. Extraocular muscles are intact. No scleral icterus. No conjunctival injection. Nares patent. OP is clear. Oral mucosa dry. NECK: Supple. No cervical adenopathy. No thyromegaly. No carotid bruits. No JVD appreciated. Cervical spine with full active and passive range of motion. No meningeal signs noted. CHEST: Diminished breath sounds in the bases bilaterally. Occasional rhonchi noted. CARDIOVASCULAR EXAM: S1 and S2 with tachycardia. ABDOMEN: Rounded and soft with mild tenderness to palpation diffusely. Bowel sounds are positive in all 4 quadrants. No palpable mass. No rebound or guarding noted. EXTREMITIES: Warm and dry with poor skin turgor. Left lodka-mbg-tayb amputation noted. Pulses palpable of the right lower extremity at the dorsalis pedis and posterior tibial arteries not bilaterally. NEUROLOGIC: Cranial nerves 2 through 12 are grossly intact. No focal or lateralizing signs appreciated. PERTINENT LABORATORY AND X-RAY FINDINGS: Sodium 138, potassium 4.5, chloride 97, CO2 of 15, BUN 70, creatinine 3.84, estimated GFR of 17, glucose 439, calcium 9.9. LFTs within normal limits. CBC showed a white blood cell count of 10.5, hemoglobin 12, hematocrit 35, platelet count 229 with 86% neutrophils. ABG dated 12/03/2019, showed arterial specimen, pH 7.53, bicarb 15.4, pCO2 of 19, pO2 of 108, and O2 saturation 98% on 21% FiO2. Beta-hydroxybutyrate level 6.85. Telemetry monitoring shows sinus tachycardia with heart rates in the low 110s. ASSESSMENT AND PLAN: 1. Diabetic ketoacidosis. The patient will be admitted to the Critical Care Unit. We will continue insulin infusion per protocol. Serial Accu-Cheks q.1 hour. No focal occult infection identified currently. Repeat beta-hydroxybutyrate level in the a.m. 2. Acute on chronic kidney disease. Avoid nephrotoxic agents and limit contrast exposure. Serial creatinine in the a.m. 3. Nausea and vomiting with diabetic gastroparesis. Continue Phenergan 25 mg IV q.6 hours. Consider resumption of Reglan. 4. Hypertension. Resume home blood pressure regimen and monitor clinical response. Hold lisinopril times 24 to 48 hours. 5. Prophylaxis. Sequential compression devices while in bed. Pepcid 20 mg IV q.12 hours. 6. Code status, full. Surrogate medical decision maker is the patient's mother. Job ID: [id number]
[2019-12-04] MEDS: Promethazine HCl 25 MG in Sodium Chloride 0.9% 50 ML IVPB PRN ×3 (05:41→21:20)
[2019-12-04] MEDS: hydrALAZINE 20 MG/ML VIAL SLOW IVP PRN ×3 (05:50→17:45)
[2019-12-04 07:42] LABS: Anion Gap 18 mmol/L (10-20); BUN (Urea Nitrogen) 65 mg/dL (8.9-20.6); Calc. Creatinine Clearance 46 mL/min (70-130); Calcium 8.4 mg/dL (7.8-10.44); Carbon Dioxide 20 mmol/L (22-29); Chloride 109 mmol/L (98-107); Estimated GFR-MDRD 22; Glucose 124 mg/dL (70-105); Potassium 3.8 mmol/L (3.5-5.1); Sodium 143 mmol/L (136-145)
[2019-12-04] MEDS: HumaLOG 300 UNITS/3 ML VIAL SC SCH ×3 (08:43→17:11)
[2019-12-04] MEDS: Insulin Glargine 20 UNITS in Pre-Filled Syringe 1 EACH SC SCH (08:43)
[2019-12-04] MEDS: Aspirin Chewable 81 MG TAB PO SCH (08:46)
[2019-12-04] MEDS: Famotidine/PF 20 mg/2ml Vial SLOW IVP SCH (08:47)
[2019-12-04] MEDS ORDERED: D5 1/2 NS w/20 mEq KCL 1,000 ML IV SCH (13:15)
[2019-12-04 13:33] LABS: Anion Gap 14 mmol/L (10-20); BUN (Urea Nitrogen) 61 mg/dL (8.9-20.6); Calc. Creatinine Clearance 54 mL/min (70-130); Calcium 8.2 mg/dL (7.8-10.44); Carbon Dioxide 23 mmol/L (22-29); Chloride 111 mmol/L (98-107); Estimated GFR-MDRD 26; Glucose 89 mg/dL (70-105); Potassium 3.9 mmol/L (3.5-5.1); Sodium 144 mmol/L (136-145)
[2019-12-04] MEDS: pyridOXINE 50 MG (B6) TAB PO SCH ×2 (14:35→20:43)
[2019-12-04] MEDS: Sodium Chloride 0.9% 1,000 ML IV SCH ×2 (15:05→20:49)
[2019-12-04] MEDS ORDERED: HumaLOG 300 UNITS/3 ML VIAL SC PRN (16:19)
--- NOTE | 2019-12-04 16:53 | CON ---
DATE OF CONSULTATION: HISTORY OF PRESENT ILLNESS: Sylvester Powell is a 39-year-old gentleman, 170 kg, came to the ER last night with nausea and vomiting. He has diabetes. His blood pressure was 182/87, temperature was 97, saturations are 100% on room air. He is now in the ICU, on a DKA protocol. Pulmonary is seeing while he is in the ICU. He offers no complaint. No shortness of breath, coughing, or wheezing. PAST MEDICAL HISTORY: Diabetes. PAST SURGICAL HISTORY: Left eye surgery. SOCIAL HISTORY: Smokes a pack a day. No alcohol abuse. HOME MEDICATIONS: 1. Aspirin. 2. Insulin Lantus 36 units daily. 3. Lisinopril 20. 4. Metoprolol 25. 5. Reglan 10. 6. Lovastatin. ALLERGIES: NONE. REVIEW OF SYSTEMS: Otherwise, negative. PHYSICAL EXAMINATION: VITAL SIGNS: Stable. Saturations 100%, blood pressure 137/73, pulse 94, respirations 18, afebrile, temperature 99. CHEST: No wheezing. No crackles. CARDIAC: Normal S1 and S2. No gallops. ABDOMEN: No masses. LABORATORY DATA: White count 10,000, hemoglobin and hematocrit are 10 and 30, platelet count is 198. PO2 not done. BUN and creatinine glucose 119. ASSESSMENT AND PLAN: Uncontrolled diabetes, renal failure, nausea, vomiting. Pulmonary will follow while in the ICU. I agree with present treatment, hydration, antinausea medication. Restart home diabetic medication. Consultation note 70 minutes, 50% direct patient care. Job ID: [id number]
[2019-12-04] MEDS ORDERED: Electrolyte Replacement Protoc 1 EACH EACH FS SCH (18:30)
[2019-12-04] MEDS ORDERED: Metoclopramide HCl 10 MG TAB PO SCH (21:00)
[2019-12-04] MEDS ORDERED: Lisinopril 20 MG TAB PO SCH (21:00)
[2019-12-05] MEDS: Sodium Chloride 0.9% 1,000 ML IV SCH ×2 (01:05→08:31)
[2019-12-05] MEDS: Promethazine HCl 25 MG in Sodium Chloride 0.9% 50 ML IVPB PRN (02:22)
[2019-12-05 06:12] LABS: Anion Gap 14 mmol/L (10-20); BUN (Urea Nitrogen) 42 mg/dL (8.9-20.6); Calc. Creatinine Clearance 74 mL/min (70-130); Calcium 7.7 mg/dL (7.8-10.44); Carbon Dioxide 23 mmol/L (22-29); Chloride 107 mmol/L (98-107); Estimated GFR-MDRD 37; Glucose 125 mg/dL (70-105); Potassium 3.7 mmol/L (3.5-5.1); Sodium 140 mmol/L (136-145)
--- NOTE | 2019-12-05 07:18 | PDOC.HOSPP ---
- Subjective Encounter Date: 12/05/19 Encounter Time: 09:50 Subjective: No overnight events. This morning, appears in moderate distress because of persistent nausea. No other complaints. - Objective Vital Signs & Weight: Vital Signs (12 hours) Temp Pulse Resp BP BP Pulse Ox 12/05/19 04:13 98.7 F 95 18 177/89 H 98 12/05/19 00:26 98.7 F 83 19 152/78 H 97 12/04/19 21:20 177/84 H 12/04/19 20:00 98.8 F 102 H 18 177/84 H 99 Weight Admit Weight 238 lb Weight 238 lb 1.588 oz Most Recent Monitor Data Heart Rate from ECG 107 NIBP 196/88 NIBP BP-Mean 124 Respiration from ECG 17 SpO2 100 I&O: 12/04/19 12/05/19 12/06/19 06:59 06:59 06:59 Intake Total 2269 4351.5 Output Total 1430 2800 Balance 839 1551.5 Result Diagrams: 12/04/19 03:18 12/05/19 05:30 Additional Labs: Accuchecks 12/04/19 12/04/19 12/04/19 12:33 09:57 08:31 POC Glucose 84 107 119 H 12/04/19 12/04/19 12/04/19 07:36 06:40 05:43 POC Glucose 118 H 138 H 174 H 12/04/19 12/04/19 12/04/19 04:13 02:57 01:37 POC Glucose 195 H 230 H 288 H 12/04/19 12/03/19 01:12 22:28 POC Glucose 285 H 378 H Hospitalist ROS - Review of Systems Constitutional: reports: sweats, weakness. denies: fever, chills Eyes: denies: vision change Respiratory: denies: cough, shortness of breath, hemoptysis, SOB with excertion Cardiovascular: denies: chest pain Gastrointestinal: reports: nausea, constipation. denies: abdominal pain, diarrhea - Medication Medications: Active Medications Generic Name Dose Route Start Last Admin Trade Name Freq PRN Reason Stop Dose Admin Aspirin 81 mg 12/04/19 09:00 12/04/19 08:46 Aspirin Chewable PO Not Given DAILY [facility] Famotidine 20 mg 12/04/19 09:00 12/04/19 08:47 Pepcid SLOW IVP 20 mg DAILY FABIO Administration Hydralazine HCl 10 mg 12/04/19 02:59 12/04/19 17:45 Apresoline SLOW IVP 10 mg Q4H PRN Administration SBP > 180 and HR < 70 Promethazine HCl 25 mg/ Sodium 51 mls @ 204 mls/hr 12/04/19 02:59 12/05/19 02 :22 Chloride IVPB 51 mls Q6H PRN Administration Nausea/Vomiting Insulin Glargine 20 units/ 0.2 mls @ 0 mls/hr 12/04/19 09:00 12/04/19 08:43 Miscellaneous Medication SC 0.2 mls QAM FABIO Administration Sodium Chloride 1,000 mls @ 100 mls/hr 12/04/19 15:00 12/05/19 01:05 Normal Saline 0.9% IV Not Given .Q10H FABIO Insulin Human Lispro 7 units 12/04/19 08:00 12/04/19 17:11 Humalog SC 7 unit TID-WM FABIO Administration Labetalol HCl 20 mg 12/04/19 02:59 12/04/19 11:00 Normodyne SLOW IVP 20 mg Q4H PRN Administration SBP > 180 and HR >/= 70 Metoclopramide HCl 10 mg 12/04/19 21:00 12/04/19 20:43 Reglan PO 10 mg HS FABIO Administration Metoprolol Succinate 12.5 mg 12/04/19 09:00 12/04/19 10:51 Toprol Xl PO 12.5 mg DAILY FABIO Administration Ondansetron HCl 4 mg 12/04/19 16:41 12/05/19 01:38 Zofran Odt PO 4 mg Q6H PRN Administration Nausea/Vomiting Pyridoxine HCl 25 mg 12/04/19 15:00 12/04/19 20:43 Vitamin B 6 PO 25 mg TID FABIO Administration - Exam General - other findings: moderate distress due to nausea Heart: no murmur, no gallops, no rubs, normal peripheral pulses Heart - other findings: regular rhythm, tachycardic Respiratory: CTAB, no wheezes, no rales, normal chest expansion Gastrointestinal: soft, non-tender, non-distended, normal bowel sounds, no palpable masses, no guarding, no rigidity Hosp A/P (1) GIOVANA (acute kidney injury) Code(s): N17.9 - ACUTE KIDNEY FAILURE, UNSPECIFIED Status: Acute (2) DKA (diabetic ketoacidoses) Code(s): E11.10 - TYPE 2 DIABETES MELLITUS WITH KETOACIDOSIS WITHOUT COMA Status: Acute (3) HTN (hypertension) Code(s): I10 - ESSENTIAL (PRIMARY) HYPERTENSION Status: Acute - Plan Diabetic ketoacidosis (resolved) currently on subq insulin regimen BG glucose well controlled; however persistent nausea - Acute CKD Avoid nephrotoxic agents and limit contrast exposure. Serial creatinine in the a.m. Nausea and vomiting with diabetic gastroparesis Continue Phenergan 25 mg IV q.6 hours. Consider resumption of Reglan Hypertension Resume home blood pressure regimen and monitor clinical response. Hold lisinopril times 24 to 48 hours. Prophylaxis Sequential compression devices while in bed. Pepcid 20 mg IV q. 12 hours. Code status, full Surrogate medical decision maker is the patient's mother.
[2019-12-05] MEDS: Famotidine/PF 20 mg/2ml Vial SLOW IVP SCH (08:59)
[2019-12-05] MEDS ORDERED: Lisinopril 20 MG TAB PO SCH (09:00)
[2019-12-05] MEDS: Insulin Glargine 20 UNITS in Pre-Filled Syringe 1 EACH SC SCH (09:00)
[2019-12-05] MEDS: pyridOXINE 50 MG (B6) TAB PO SCH ×2 (09:03→15:30)
[2019-12-05] MEDS: Aspirin Chewable 81 MG TAB PO SCH (09:03)
[2019-12-05] MEDS ORDERED: Metoclopramide HCl 10 MG TAB PO PRN (14:50)
[2019-12-05 16:18] VITALS: BP 174/91; TEMP 98.4
--- NOTE | 2019-12-05 19:15 | DIS ---
DATE OF ADMISSION: 12/04/2019 DATE OF DISCHARGE: 12/05/2019 HOSPITAL COURSE: Mr. Powell is a 39-year-old male with a medical history of type 2 diabetes, diabetic nephropathy, diabetic retinopathy, hypertension, and legal blindness, who presented with inability to eat or drink for 3 days because of nausea and vomiting. He was diagnosed with DKA. He was initially admitted to the ICU. His anion gap was resolved within the few hours; however, nausea and vomiting persisted. The patient was administered multiple antiemetics; however, refuse to take most of them with the exception of promethazine and a few doses of Zofran. He remained nauseated and could not tolerate liquids. Upon attempt to modify his medications, the patient decided to leave [place]. At the time of leaving, the patient was hemodynamically stable with the exception of nausea and vomiting, had no complaints. In addition, the patient was diagnosed with GIOVANA, on CKD. The patient was supplemented with IV fluids and apparently returned to baseline function, which is CKD 3B. Prior to discharge, the patient was requested to follow up with his primary care physician within three days. PHYSICAL EXAMINATION: VITAL SIGNS: Blood pressure 174/91, pulse 86, respiratory rate 20, and oxygen saturation 100% on room air, and temperature 98.4. GENERAL: Lying in bed and appears in mild distress due to nausea. HEART: Regular rhythm, tachycardic. No murmurs, gallops, or rubs. Normal peripheral pulses. RESPIRATORY: Clear to auscultation bilaterally. No wheezing, rales, or rhonchi. GI: Soft, nontender, and nondistended. Normal bowel sounds. No guarding or rigidity. MEDICATION LIST: New medications; 1. Chlorthalidone 25 mg p.o. daily. 2. Pyridoxine 25 mg p.o. t.i.d. p.r.n. nausea and vomiting. 3. Metoclopramide 10 mg p.o. q.6 hours p.r.n. nausea and vomiting. 4. Zofran 4 mg p.o. q.6 hours p.r.n. nausea and vomiting. Continued medications; 1. Aspirin. 2. Metoprolol succinate. 3. Insulin glargine. 4. Insulin lispro. 5. Lisinopril. 6. Lovastatin. Modified medications, no modified medications. Discontinued medications, no discontinued medications. Job ID: [id number]
[2019-12-06] MEDS ORDERED: Chlorthalidone 25 MG TAB PO SCH (09:00)
== END 2019-12-05 18:00 | disposition left against medical advice (07) | DRG 638 ==
LOC: ERS 22:13 → ERHOLD 12-04 → CCU 12-04 00:06 → T4-A 12-04 19:23
PROVIDERS: ADMIT Family Medicine; ATTEND Family Medicine
DX: E11.10 Type 2 diabetes mellitus with ketoacidosis without coma (principal); N17.9 Acute kidney failure, unspecified; E11.319 Type 2 diabetes mellitus with unspecified diabetic retinopathy without macular edema; I12.9 Hypertensive chronic kidney disease with stage 1 through stage 4 chronic kidney disease, or unspecified chronic kidney disease; E11.22 Type 2 diabetes mellitus with diabetic chronic kidney disease; N18.3 Chronic kidney disease, stage 3 (moderate); F17.210 Nicotine dependence, cigarettes, uncomplicated; H54.8 Legal blindness, as defined in USA; E11.43 Type 2 diabetes mellitus with diabetic autonomic (poly)neuropathy; K31.84 Gastroparesis; Z53.29 Procedure and treatment not carried out because of patient's decision for other reasons; Z89.512 Acquired absence of left leg below knee; Z79.82 Long term (current) use of aspirin; Z79.4 Long term (current) use of insulin; Z79.899 Other long term (current) drug therapy
CPT/HCPCS: 36415; 36416; 80048; 80053; 82010; 82805; 85025; 85027; 96361; 96365; 96375; 96376; J0360; J1815; J2405; J2550; J3480; J3490; Q0162; S0028

== ENCOUNTER 2020-05-31 13:52 | Inpatient (IN) | payer OTHER ==
[2020-05-31] MEDS ORDERED: Promethazine HCl 25 MG/ML VIAL ONE ×3 (14:12→18:07)
[2020-05-31 14:30] LABS: #Lymphocytes 1.3 thou/uL (1.20-3.40); #Monocytes 0.5 thou/uL (0.11-0.59); #Neutrophils 12.3 thou/uL (1.40-6.50); %Basophils 0.2 % (0.0-1.0); %Eosinophils 0.1 % (0.0-10.0); %Monocytes 3.8 % (0.0-10.0); Hemoglobin 11.4 g/dL (14.0-18.0); Mean Corpuscular HGB CONC 33.4 g/dL (32.0-36.0); Mean Corpuscular Hemoglobin 30.9 pg (27.0-31.0); Mean Corpuscular Volume 92.4 fL (78.0-98.0); Mean Platelet Volume 9.2 fL (7.4-10.4); Platelet Count 184 thou/uL (130-400); RBC Distribution Width 11.9 % (11.5-14.5); White Blood Cell (WBC) Count 14.1 thou/uL (4.8-10.8)
[2020-05-31 14:44] LABS: ALT (SGPT) 17 U/L (8-55); AST (SGOT) 23 U/L (5-34); Albumin 4.3 g/dL (3.5-5.0); Alkaline Phosphatase 80 U/L (40-110); Anion Gap 28 mmol/L (10-20); BUN (Urea Nitrogen) 51 mg/dL (8.9-20.6); Bilirubin, Total 0.6 mg/dL (0.2-1.2); Calc. Creatinine Clearance 0 mL/min (70-130); Calcium 9.3 mg/dL (7.8-10.44); Carbon Dioxide 20 mmol/L (22-29); Chloride 93 mmol/L (98-107); Glucose 373 mg/dL (70-105); Potassium 4.6 mmol/L (3.5-5.1); Protein, Total 7.3 g/dL (6.0-8.3); Sodium 136 mmol/L (136-145)
--- NOTE | 2020-05-31 14:57 | RAD ---
EXAM: CHEST ONE VIEW HISTORY: Nausea and vomiting for 3 days. COMPARISON: 07/10/2019 FINDINGS: The cardiac silhouette and pulmonary vasculature are within normal limits. The lungs are clear. No in terval change from prior study. IMPRESSION: No acute cardiopulmonary process.
[2020-05-31 15:04] LABS: CKMB 1.7 ng/mL (0-6.6)
[2020-05-31] MEDS ORDERED: Aspirin Chewable 81 MG TAB ONE (15:38)
[2020-05-31] MEDS ORDERED: Nitroglycerin 2% Ointment 1 INCH/1 GM Packet ONE (15:38)
[2020-05-31] MEDS ORDERED: INSULIN REGULAR IN 0.9 % NACL 100 UNIT/100 ML BAG ONE (17:15)
[2020-05-31] MEDS ORDERED: Sodium Chloride 0.9% 1,000 ML IV PRN ×4 (18:01)
[2020-05-31] MEDS ORDERED: Electrolyte Replacement Protocol 1 EACH IVPB ONE (18:01)
[2020-05-31] MEDS ORDERED: NS 0.9% w/ 20 MEQ KCL 1,000 ML IV PRN (18:01)
[2020-05-31] MEDS ORDERED: Dextrose 5 %-0.45 % NaCl 1,000 ML IV PRN (18:01)
[2020-05-31] MEDS ORDERED: Ondansetron ODT 4 MG TAB PO PRN (18:09)
[2020-05-31] MEDS ORDERED: Acetaminophen 325 MG TAB PO PRN (18:09)
[2020-05-31] MEDS ORDERED: HUMULIN R 100 UNITS in Sodium Chloride 0.9% 100 ML IVPB SCH (18:15)
--- NOTE | 2020-05-31 18:15 | PDOC.HHP ---
Hospitalist HPI - History of Present Illness Nausea vomiting History of Present Illness: Patient is a 40-year-old male with a history of recurrent diabetic ketoacidosis in admissions. Typically presents with nausea vomiting. Patient has some gastroparesis which unfortunately exacerbates his GI symptoms. Patient presented to the emergency department today with 2 to 3 days of nausea and vomiting. He says he always has chills but denies any specific fever. Denies any other symptoms of specific underlying infection. Says he has been trying to take his medications. ED Course: Patient had elevated beta hydroxybutyrate consistent with diabetic ketoacidosis with an elevated anion gap at 28. He received IV fluids. He received Phenergan for his nausea vomiting. Hospitalist ROS - Review of Systems Constitutional: reports: chills. denies: fever Respiratory: denies: cough, shortness of breath Cardiovascular: denies: chest pain, palpitations Gastrointestinal: reports: nausea, vomiting. denies: abdominal pain, diarrhea, constipation All other systems reviewed; all pertinent +/- noted in HPI/Subj - Medication Medications: Aspirin Childrens TABLET, CHEWABLE : Strength - 81 mg : ORAL Patient Dose: 1 tab(s) Oral once a day. HumaLOG Mix 50-50 Insuln U-100 VIAL (SDV,MDV OR ADDITIVE) (ML) : Strength - 100 unit/mL (50-50) : SUBCUTANEOUS Patient Dose: units Subcutaneous. NEEDED SLIDING SCALE. Lantus U-100 Insulin VIAL (SDV,MDV OR ADDITIVE) (ML) : Strength - 100 unit/mL : SUBCUTANEOUS Patient Dose: 36 units Subcutaneous once a day. lisinopril TABLET : Strength - 20 mg : ORAL Patient Dose: 1 tab(s) Oral once a day. metoprolol tartrate oral TABLET : Strength - 25 mg : ORAL Patient Dose: 12.5 mg Oral 2 times a day. lovastatin tablet : Strength - 20 mg : ORAL Patient Dose: 20 mg Oral once a day. metoclopramide oral tablet : Strength - 10 mg : ORAL Patient Dose: 10 mg Oral once a day. Hospitalist History - Past Medical History Source: patient Cardiac: reports: HTN Musculoskeletal: reports: Other (Left BKA) ENT: reports: Other (Vision impairment due to diabetic retinopathy) - Past Surgical History Past Surgical History: reports: Other (Left BKA, bilateral eye surgery due to of diabetic retinopathy.) - Social History Alcohol: reports: None Drugs: reports: none Occupation: Uses e-cigarettes. Ambulates with a cane or walker due to left BKA. - Exam General Appearance: ill appearing Eye: PERRL Neck: supple, symmetric, no JVD, no thyromegaly, no lymphadenopathy, no carotid bruit Heart: RRR, no murmur, no gallops, no rubs, normal peripheral pulses Respiratory: CTAB, no wheezes, no rales, no ronchi, normal chest expansion, no tachypnea, normal percussion Gastrointestinal: soft, non-tender, non-distended, normal bowel sounds, no palpable masses, no hepatomegaly, no splenomegaly, no bruit Extremities: no cyanosis, no clubbing, no edema Extremities - other findings: Left BKA Skin: normal turgor Neurological: no focal deficits Musculoskeletal: generalized weakness Psychiatric: lethargic Hospitalist Results - Labs Result Diagrams: 05/31/20 14:14 05/31/20 14:14 Lab results: WBC 14.1 thou/uL (4.8-10.8) H 05/31/20 14:14 Hgb 11.4 g/dL (14.0-18.0) L 05/31/20 14:14 Hct 34.2 % (42.0-52.0) L 05/31/20 14:14 MCV 92.4 fL (78.0-98.0) 05/31/20 14:14 Plt Count 184 thou/uL (130-400) 05/31/20 14:14 Neutrophils % 87.0 % (42.0-75.0) H 05/31/20 14:14 Sodium 136 mmol/L (136-145) 05/31/20 14:14 Potassium 4.6 mmol/L (3.5-5.1) 05/31/20 14:14 Chloride 93 mmol/L (98-107) L 05/31/20 14:14 Carbon Dioxide 20 mmol/L (22-29) L 05/31/20 14:14 BUN 51 mg/dL (8.9-20.6) H 05/31/20 14:14 Creatinine 3.29 mg/dL (0.7-1.3) H 05/31/20 14:14 Glucose 373 mg/dL (70-105) H 05/31/20 14:14 Calcium 9.3 mg/dL (7.8-10.44) 05/31/20 14:14 Total Bilirubin 0.6 mg/dL (0.2-1.2) 05/31/20 14:14 AST 23 U/L (5-34) 05/31/20 14:14 ALT 17 U/L (8-55) 05/31/20 14:14 Alkaline Phosphatase 80 U/L (40-110) 05/31/20 14:14 CK-MB (CK-2) 1.7 ng/mL (0-6.6) 05/31/20 14:14 Troponin I 0.030 ng/mL (< 0.028) H 05/31/20 14:14 Serum Total Protein 7.3 g/dL (6.0-8.3) 05/31/20 14:14 Albumin 4.3 g/dL (3.5-5.0) 05/31/20 14:14 - Radiology Interpretation Chest x-ray Status: image reviewed by me, report reviewed by me (No acute findings) Hospitalist H&P A/P - Problem (1) DKA (diabetic ketoacidoses) Code(s): E11.10 - TYPE 2 DIABETES MELLITUS WITH KETOACIDOSIS WITHOUT COMA Status: Acute (2) Gastroparesis due to DM Code(s): E11.43 - TYPE 2 DIABETES W DIABETIC AUTONOMIC (POLY)NEUROPATHY; K31.84 - GASTROPARESIS Status: Acute (3) HLD (hyperlipidemia) Code(s): E78.5 - HYPERLIPIDEMIA, UNSPECIFIED Status: Acute (4) HTN (hypertension) Code(s): I10 - ESSENTIAL (PRIMARY) HYPERTENSION Status: Acute (5) Intractable nausea and vomiting Code(s): R11.2 - NAUSEA WITH VOMITING, UNSPECIFIED Status: Acute (6) CKD (chronic kidney disease), stage IV Code(s): N18.4 - CHRONIC KIDNEY DISEASE, STAGE 4 (SEVERE) Status: Acute - Plan Plan: Diabetic ketoacidosis: No evidence of underlying infection or other provocation. Admit the patient to the [facility] on diabetic ketoacidosis protocol. Treat the underlying nausea. Nausea vomiting: Patient has gastroparesis and this may be the source. Continue with symptomatic treatment. May consider resumption of his Reglan. Diabetic gastroparesis: As above may need to consider Reglan IV if his symptoms do not resolve promptly with hydration. Hypertension: Continue metoprolol and lisinopril as tolerated. Hyperlipidemia: Resume statin as tolerated. CKD stage IV: Patient's renal function is essentially at his baseline. Leukocytosis: Likely reactive to the DKA. Recheck in the morning. Do not see an indication for antibiotics at this time.
[2020-05-31] MEDS ORDERED: Metoclopramide HCl 10 MG/2 ML VIAL IVP PRN (18:24)
[2020-05-31] MEDS ORDERED: hydrALAZINE 20 MG/ML VIAL SLOW IVP PRN (18:25)
[2020-05-31 19:11] LABS: Anion Gap 19 mmol/L (10-20); BUN (Urea Nitrogen) 51 mg/dL (8.9-20.6); Calc. Creatinine Clearance 0 mL/min (70-130); Calcium 8.6 mg/dL (7.8-10.44); Carbon Dioxide 25 mmol/L (22-29); Chloride 99 mmol/L (98-107); Glucose 280 mg/dL (70-105); Potassium 3.8 mmol/L (3.5-5.1); Sodium 139 mmol/L (136-145)
[2020-05-31] MEDS: Ondansetron PF 4 MG/2 ML Vial IVP PRN (19:49)
[2020-05-31] MEDS: Famotidine 20 MG TAB PO SCH (19:49)
[2020-05-31] MEDS: Heparin 5,000 UNITS/ML VIAL SC SCH (19:50)
[2020-05-31] MEDS: NS 0.9% w/ 20 MEQ KCL 1,000 ML IV PRN ×2 (19:50→22:02)
[2020-05-31 20:14] VITALS: BMI 24.9
[2020-05-31] MEDS ORDERED: Electrolyte Replacement Protocol 1 EACH IVPB PRN (20:36)
[2020-05-31] MEDS: D5 1/2 NS w/20 mEq KCL 1,000 ML IV PRN ×2 (21:58→23:55)
[2020-05-31] MEDS: Promethazine HCl 25 MG/ML VIAL SLOW IVP PRN (22:05)
[2020-05-31 22:55] LABS: Anion Gap 17 mmol/L (10-20); BUN (Urea Nitrogen) 48 mg/dL (8.9-20.6); Calc. Creatinine Clearance 52 mL/min (70-130); Calcium 8.2 mg/dL (7.8-10.44); Carbon Dioxide 25 mmol/L (22-29); Chloride 105 mmol/L (98-107); Glucose 118 mg/dL (70-105); Potassium 3.8 mmol/L (3.5-5.1); Sodium 143 mmol/L (136-145)
[2020-06-01] MEDS: Ondansetron PF 4 MG/2 ML Vial IVP PRN (02:15)
[2020-06-01 03:54] LABS: Anion Gap 14 mmol/L (10-20); BUN (Urea Nitrogen) 42 mg/dL (8.9-20.6); Calc. Creatinine Clearance 59 mL/min (70-130); Calcium 7.7 mg/dL (7.8-10.44); Carbon Dioxide 24 mmol/L (22-29); Chloride 105 mmol/L (98-107); Glucose 220 mg/dL (70-105); Potassium 4.1 mmol/L (3.5-5.1); Sodium 139 mmol/L (136-145)
[2020-06-01] MEDS: D5 1/2 NS w/20 mEq KCL 1,000 ML IV PRN ×2 (04:14→08:04)
[2020-06-01] MEDS: Promethazine HCl 25 MG/ML VIAL SLOW IVP PRN (06:09)
[2020-06-01] MEDS: Famotidine 20 MG TAB PO SCH (08:12)
[2020-06-01] MEDS ORDERED: FLU VACC QS2020-21(6MOS UP)/PF 60 MCG/0.5 ML SYRINGE IM ONE (09:00)
[2020-06-01] MEDS ORDERED: Aspirin Chewable 81 MG TAB PO SCH (09:00)
[2020-06-01] MEDS: Heparin 5,000 UNITS/ML VIAL SC SCH ×2 (09:52→14:52)
[2020-06-01] MEDS ORDERED: Insulin Glargine 30 UNITS in Pre-Filled Syringe 1 EACH SC SCH (10:00)
[2020-06-01] MEDS ORDERED: Scopolamine 1.5 mg/72 hour Patch TD SCH (10:00)
[2020-06-01] MEDS ORDERED: Sodium Chloride 0.9% 1,000 ML IV SCH (10:00)
[2020-06-01] MEDS ORDERED: Dextrose 50% Abboject 50 ML SYRINGE SLOW IVP PRN (10:08)
[2020-06-01] MEDS ORDERED: HumaLOG 300 UNITS/3 ML VIAL SC PRN (10:08)
[2020-06-01] MEDS ORDERED: Dextrose 5% in Water 1,000 ML IV PRN (10:08)
[2020-06-01] MEDS ORDERED: Metoclopramide HCl 10 MG/2 ML VIAL IVP SCH ×2 (11:45→14:00)
--- NOTE | 2020-06-01 13:04 | PDOC.HOSPP ---
- Subjective Encounter Date: 06/01/20 Subjective: The patient still complaining of persistent nausea, vomiting and abdominal discomfort. - Objective Vital Signs & Weight: Vital Signs (12 hours) Temp 06/01/20 12:00 98.5 F 06/01/20 08:00 99.8 F H 06/01/20 04:00 99.4 F Weight Weight 232 lb 12.93 oz Most Recent Monitor Data Heart Rate from ECG 77 NIBP 156/74 NIBP BP-Mean 101 Respiration from ECG 17 SpO2 99 I&O: 05/31/20 06/01/20 06/02/20 06:59 06:59 06:59 Intake Total 4502.2 428.4 Output Total 1025 1800 Balance 3477.2 -1371.6 Result Diagrams: 05/31/20 14:14 06/01/20 03:20 Additional Labs: Accuchecks 06/01/20 06/01/20 06/01/20 11:22 08:59 08:07 POC Glucose 167 H 206 H 226 H 06/01/20 06/01/20 06/01/20 07:23 06:03 05:09 POC Glucose 230 H 217 H 224 H 06/01/20 06/01/20 06/01/20 04:16 02:04 01:17 POC Glucose 226 H 150 H 138 H 05/31/20 05/31/20 05/31/20 23:58 23:00 22:10 POC Glucose 98 109 H 114 H 05/31/20 05/31/20 05/31/20 21:10 20:00 18:41 POC Glucose 128 H 160 H 232 H 05/31/20 05/31/20 16:21 13:56 POC Glucose 321 H 312 H Hospitalist ROS - Medication Medications: Active Medications Generic Name Dose Route Start Last Admin Trade Name Freq PRN Reason Stop Dose Admin Aspirin 81 mg 06/01/20 09:00 06/01/20 08:12 Aspirin Chewable 81 Mg Tab PO Not Given DAILY FABIO Famotidine 20 mg 05/31/20 21:00 06/01/20 08:12 Famotidine 20 Mg Tab PO Not Given BID FBAIO Heparin Sodium (Porcine) 5,000 units 05/31/20 21:00 06/01/20 09:52 Heparin 5,000 Units/Ml Vial SC 5,000 units TID FABIO Administration Sodium Chloride 1,000 mls @ 125 mls/hr 06/01/20 10:00 06/01/20 10:06 Normal Saline 0.9% IV 1,000 mls .Q8H FABIO Administration Metoclopramide HCl 10 mg 05/31/20 18:24 06/01/20 08:04 Metoclopramide Hcl 10 Mg/2 Ml Vial IVP 10 mg Q6H PRN Administration Nausea/Vomiting Metoclopramide HCl 10 mg 06/01/20 11:45 06/01/20 11:44 Metoclopramide Hcl 10 Mg/2 Ml Vial IVP 06/01/20 14:00 10 mg NOW FABIO Administration Metoprolol Succinate 12.5 mg 06/01/20 09:00 06/01/20 02:36 Metoprolol Succinate Xl 25 Mg Tab PO 12.5 mg DAILY FABIO Administration Scopolamine 1.5 mg 06/01/20 10:00 06/01/20 10:05 Scopolamine 1.5 Mg/72 Hour Patch TD 1.5 mg Q3D FABIO Administration - Exam General Appearance: awake alert ENT: normocephalic atraumatic Neck: supple Heart: RRR Respiratory: normal chest expansion, no tachypnea Extremities: no cyanosis, no clubbing Neurological: cranial nerve grossly intact, no focal deficits Hosp A/P (1) DKA (diabetic ketoacidoses) Code(s): E11.10 - TYPE 2 DIABETES MELLITUS WITH KETOACIDOSIS WITHOUT COMA Status: Acute (2) Gastroparesis due to DM Code(s): E11.43 - TYPE 2 DIABETES W DIABETIC AUTONOMIC (POLY)NEUROPATHY; K31.84 - GASTROPARESIS Status: Acute (3) HLD (hyperlipidemia) Code(s): E78.5 - HYPERLIPIDEMIA, UNSPECIFIED Status: Acute (4) HTN (hypertension) Code(s): I10 - ESSENTIAL (PRIMARY) HYPERTENSION Status: Acute (5) CKD (chronic kidney disease), stage IV Code(s): N18.4 - CHRONIC KIDNEY DISEASE, STAGE 4 (SEVERE) Status: Acute - Plan DKA have now resolved. Started on subcu Lantus and medium sliding scale. Continue normal saline for hydration. To chloride scheduled for nausea due to gastroparesis. Clear liquid diet for now. He can be transferred to telemetry.
[2020-06-01 16:14] VITALS: TEMP 99.5
[2020-06-02] MEDS ORDERED: Insulin Glargine 30 UNITS in Pre-Filled Syringe 1 EACH SC SCH (09:00)
--- NOTE | 2020-06-21 16:40 | EKG ---
Test Reason : Blood Pressure : / mmHG Vent. Rate : 114 BPM Atrial Rate : 114 BPM P-R Int : 134 ms QRS Dur : 076 ms QT Int : 336 ms P-R-T Axes : 072 -54 055 degrees QTc Int : 463 ms Sinus tachycardia Left anterior fascicular block Abnormal ECG Confirmed by EMMA FINNEGAN, SNOW Rose ([id number]), sports editor GARFIELD LAGUNA ([id number]) on 06/21/2020 4:39:57 PM Referred By: Confirmed By:SNOW CARTER MD
== END 2020-06-01 18:14 | disposition left against medical advice (07) | DRG 74 ==
LOC: ERS 13:52 → CCU 17:13
PROVIDERS: ADMIT Internal Medicine; ATTEND Internal Medicine
DX: E11.43 Type 2 diabetes mellitus with diabetic autonomic (poly)neuropathy (principal); N18.4 Chronic kidney disease, stage 4 (severe); E11.10 Type 2 diabetes mellitus with ketoacidosis without coma; Z20.822 Contact with and (suspected) exposure to COVID-19; K31.84 Gastroparesis; E78.5 Hyperlipidemia, unspecified; I12.9 Hypertensive chronic kidney disease with stage 1 through stage 4 chronic kidney disease, or unspecified chronic kidney disease; E11.22 Type 2 diabetes mellitus with diabetic chronic kidney disease; H54.8 Legal blindness, as defined in USA; E11.319 Type 2 diabetes mellitus with unspecified diabetic retinopathy without macular edema; F17.290 Nicotine dependence, other tobacco product, uncomplicated; D72.829 Elevated white blood cell count, unspecified; Z89.512 Acquired absence of left leg below knee; Z28.21 Immunization not carried out because of patient refusal; Z79.899 Other long term (current) drug therapy; Z79.82 Long term (current) use of aspirin; Z79.4 Long term (current) use of insulin
CPT/HCPCS: 36415; 36416; 71045; 80053; 82010; 82553; 84484; 85025; 93005; 96365; 96366; 96367; 96368; 96376; J1644; J1815; J2405; J2550; J2765; J3480; J3490; Q0162

== ENCOUNTER 2021-03-06 10:04 | Inpatient (IN) | payer OTHER ==
[2021-03-06] MEDS ORDERED: Ondansetron PF 4 MG/2 ML Vial ONE ×2 (10:21→15:35)
[2021-03-06 10:54] LABS: #Monocytes 0.5 thou/uL (0.11-0.59); #Neutrophils 12.9 thou/uL (1.40-6.50); %Basophils 0.1 % (0.0-1.0); %Eosinophils 0.1 % (0.0-10.0); %Lymphocytes 6.6 % (21.0-51.0); %Monocytes 3.5 % (0.0-10.0); %Neutrophils 89.6 % (42.0-75.0); Hemoglobin 10.2 g/dL (14.0-18.0); Mean Corpuscular HGB CONC 33.7 g/dL (32.0-36.0); Mean Corpuscular Hemoglobin 31.9 pg (27.0-31.0); Mean Corpuscular Volume 94.8 fL (78.0-98.0); Mean Platelet Volume 9.3 fL (7.4-10.4); Platelet Count 205 thou/uL (130-400); RBC Distribution Width 12.1 % (11.5-14.5); Red Blood Cell (RBC) Count 3.19 mill/uL (4.70-6.10); White Blood Cell (WBC) Count 14.4 thou/uL (4.8-10.8)
[2021-03-06 11:10] LABS: Magnesium 2.1 mg/dL (1.6-2.6)
[2021-03-06] MEDS ORDERED: Promethazine HCl 25 MG/ML VIAL ONE (11:15)
[2021-03-06 11:25] LABS: ALT (SGPT) 21 U/L (8-55); AST (SGOT) 22 U/L (5-34); Albumin 3.9 g/dL (3.5-5.0); Alkaline Phosphatase 79 U/L (40-110); Anion Gap 26 mmol/L (10-20); BUN (Urea Nitrogen) 44 mg/dL (8.9-20.6); Bilirubin, Total 0.5 mg/dL (0.2-1.2); Calc. Creatinine Clearance 0 mL/min (70-130); Calcium 9.7 mg/dL (7.8-10.44); Carbon Dioxide 18 mmol/L (22-29); Chloride 101 mmol/L (98-107); Globulin 2.7 g/dL (2.4-3.5); Glucose 476 mg/dL (70-105); Lipase 16 U/L (8-78); Phosphorus 3.3 mg/dL (2.3-4.7); Potassium 4.1 mmol/L (3.5-5.1); Protein, Total 6.6 g/dL (6.0-8.3); Sodium 141 mmol/L (136-145)
[2021-03-06] MEDS ORDERED: Insulin Regular 300 UNITS/3 ML VIAL ONE (12:43)
[2021-03-06] MEDS ORDERED: INSULIN REGULAR IN 0.9 % NACL 100 UNIT/100 ML BAG ONE (12:44)
[2021-03-06 12:57] LABS: Actual Bicarbonate (HCO3v) 19 mEq/L (22-28); Analyzer IN Cardio ER; Base Excess -3.9 mEq/L (-2.0 to +3.0); Calcium, Ionized (venous) 1.06 mmol/L (1.16-1.32); Chloride (VBG) 104 mmol/L (98-106); Hemoglobin (Hb) 10.1 g/dL (13.2-17.3); Potassium (VBG) 3.91 mmol/L (3.70-5.30); Sodium 138.7 mmol/L (133-146); pH (venous) 7.48 (7.32-7.43)
[2021-03-06] MEDS ORDERED: Acetaminophen 325 MG TAB PO PRN (13:18)
[2021-03-06] MEDS ORDERED: Dextrose 5 %-0.45 % NaCl 1,000 ML IV PRN (13:18)
[2021-03-06] MEDS ORDERED: Sodium Chloride 0.9% 1,000 ML IV PRN ×4 (13:18)
[2021-03-06] MEDS ORDERED: Senokot S 8.6-50 MG TAB PO PRN (13:18)
[2021-03-06] MEDS ORDERED: Calcium Carbonate 500 MG ChewTAB PO PRN (13:18)
[2021-03-06] MEDS ORDERED: Electrolyte Replacement Protocol 1 EACH IVPB ONE (13:18)
[2021-03-06] MEDS ORDERED: HYDROcodone/Acetaminophen 5/325 mg Tablet PO PRN (13:18)
[2021-03-06] MEDS ORDERED: NS 0.9% w/ 20 MEQ KCL 1,000 ML IV PRN ×2 (13:18)
[2021-03-06] MEDS ORDERED: Loperamide HCl 2 MG CAP PO PRN (13:18)
[2021-03-06 13:22] LABS: Bacteria/HPF None Seen HPF (None Seen); Bilirubin Negative (Negative); Blood, Urine 1+ (Negative); Clarity Clear (Clear); Glucose, Urine (Dipstick) Greater than 1000 mg/dL (Negative); Ketone, Urine 10 mg/dL (Negative); Leukocyte Negative Leu/uL (Negative); Nitrite Negative (Negative); Protein, Urine (Dipstick) 300 mg/dL (Neg-Trace); RBC/HPF 0-3 HPF (0-3); Specific Gravity, Urine 1.015 (1.002-1.036); Squamous Epithelial 0-3 HPF (0-3); Urobilinogen Normal mg/dL (Less than 2); WBC/HPF 0-3 HPF (0-3); pH, Urine 5.5 (5.0-9.0)
[2021-03-06] MEDS ORDERED: HUMULIN R 100 UNITS in Sodium Chloride 0.9% 100 ML IVPB SCH (13:30)
[2021-03-06] MEDS ORDERED: Aspirin Chewable 81 MG TAB ONE ×2 (14:00→14:03)
[2021-03-06 14:06] LABS: Anion Gap 22 mmol/L (10-20); BUN (Urea Nitrogen) 47 mg/dL (8.9-20.6); Calc. Creatinine Clearance 0 mL/min (70-130); Calcium 8.9 mg/dL (7.8-10.44); Carbon Dioxide 18 mmol/L (22-29); Chloride 104 mmol/L (98-107); Glucose 419 mg/dL (70-105); Potassium 3.8 mmol/L (3.5-5.1); Sodium 140 mmol/L (136-145)
[2021-03-06 16:11] LABS: Anion Gap 17 mmol/L (10-20); BUN (Urea Nitrogen) 43 mg/dL (8.9-20.6); Calc. Creatinine Clearance 0 mL/min (70-130); Calcium 8.9 mg/dL (7.8-10.44); Carbon Dioxide 22 mmol/L (22-29); Chloride 107 mmol/L (98-107); Glucose 234 mg/dL (70-105); Potassium 3.5 mmol/L (3.5-5.1); Sodium 142 mmol/L (136-145)
[2021-03-06 17:05] VITALS: BMI 27.7
[2021-03-06] MEDS: Ondansetron PF 4 MG/2 ML Vial IVP PRN (20:33)
[2021-03-06] MEDS: Famotidine/PF 20 mg/2ml Vial SLOW IVP SCH (20:33)
[2021-03-06] MEDS: hydrALAZINE 25 MG TAB PO PRN (20:34)
[2021-03-06] MEDS: D5 1/2 NS w/20 mEq KCL 1,000 ML IV PRN (20:44)
[2021-03-06 21:15] LABS: Anion Gap 17 mmol/L (10-20); BUN (Urea Nitrogen) 43 mg/dL (8.9-20.6); Calc. Creatinine Clearance 42 mL/min (70-130); Calcium 8.2 mg/dL (7.8-10.44); Carbon Dioxide 19 mmol/L (22-29); Chloride 107 mmol/L (98-107); Glucose 214 mg/dL (70-105); Potassium 3.7 mmol/L (3.5-5.1); Sodium 139 mmol/L (136-145)
[2021-03-07] MEDS: D5 1/2 NS w/20 mEq KCL 1,000 ML IV PRN ×5 (01:29→21:05)
[2021-03-07] MEDS: Ondansetron PF 4 MG/2 ML Vial IVP PRN ×3 (01:38→20:58)
[2021-03-07 01:40] LABS: Anion Gap 17 mmol/L (10-20); BUN (Urea Nitrogen) 43 mg/dL (8.9-20.6); Calc. Creatinine Clearance 43 mL/min (70-130); Calcium 7.9 mg/dL (7.8-10.44); Carbon Dioxide 18 mmol/L (22-29); Chloride 108 mmol/L (98-107); Glucose 264 mg/dL (70-105); Potassium 3.9 mmol/L (3.5-5.1); Sodium 139 mmol/L (136-145)
[2021-03-07] MEDS: Promethazine HCl 12.5 MG in Sodium Chloride 0.9% 50 ML IVPB PRN ×3 (02:04→18:15)
[2021-03-07 05:46] LABS: #Lymphocytes 1.6 thou/uL (1.20-3.40); #Monocytes 1.2 thou/uL (0.11-0.59); #Neutrophils 11.7 thou/uL (1.40-6.50); %Basophils 0.1 % (0.0-1.0); %Eosinophils 0.2 % (0.0-10.0); %Lymphocytes 11.1 % (21.0-51.0); %Monocytes 8.5 % (0.0-10.0); %Neutrophils 80.1 % (42.0-75.0); Hemoglobin 8.9 g/dL (14.0-18.0); Mean Corpuscular HGB CONC 33.3 g/dL (32.0-36.0); Mean Corpuscular Hemoglobin 31.9 pg (27.0-31.0); Mean Corpuscular Volume 95.7 fL (78.0-98.0); Mean Platelet Volume 9.7 fL (7.4-10.4); Platelet Count 125 thou/uL (130-400); RBC Distribution Width 12.1 % (11.5-14.5); Red Blood Cell (RBC) Count 2.77 mill/uL (4.70-6.10); White Blood Cell (WBC) Count 14.6 thou/uL (4.8-10.8)
[2021-03-07 06:16] LABS: ALT (SGPT) 14 U/L (8-55); AST (SGOT) 30 U/L (5-34); Albumin 2.9 g/dL (3.5-5.0); Alkaline Phosphatase 55 U/L (40-110); Anion Gap 13 mmol/L (10-20); BUN (Urea Nitrogen) 37 mg/dL (8.9-20.6); Bilirubin, Total 0.2 mg/dL (0.2-1.2); Calc. Creatinine Clearance 48 mL/min (70-130); Calcium 7.9 mg/dL (7.8-10.44); Carbon Dioxide 18 mmol/L (22-29); Chloride 107 mmol/L (98-107); Globulin 2.7 g/dL (2.4-3.5); Glucose 121 mg/dL (70-105); Potassium 4.3 mmol/L (3.5-5.1); Protein, Total 5.6 g/dL (6.0-8.3); Sodium 134 mmol/L (136-145)
[2021-03-07] MEDS: Famotidine/PF 20 mg/2ml Vial SLOW IVP SCH ×2 (08:10→20:58)
[2021-03-07] MEDS: Enoxaparin Sodium 40 MG/0.4 ML SYRINGE SC SCH (08:10)
[2021-03-07] MEDS ORDERED: Sodium Chloride 0.9% 1,000 ML IV SCH (09:00)
[2021-03-07] MEDS ORDERED: FLU VACC QS2021-22(6MOS UP)/PF 60 MCG/0.5 ML SYRINGE IM ONE (09:00)
[2021-03-07] MEDS: hydrALAZINE 25 MG TAB PO PRN (09:20)
[2021-03-07] MEDS ORDERED: Aspirin Chewable 81 MG TAB PO SCH (10:45)
[2021-03-07] MEDS ORDERED: NIFEdipine XL 90 MG TAB PO SCH (10:45)
[2021-03-07] MEDS ORDERED: Dextrose 50% Abboject 50 ML SYRINGE SLOW IVP PRN (11:07)
[2021-03-07] MEDS ORDERED: HumaLOG 300 UNITS/3 ML VIAL SC PRN (11:07)
[2021-03-07] MEDS ORDERED: Dextrose 5% in Water 1,000 ML IV PRN (11:07)
[2021-03-07] MEDS ORDERED: HUMULIN R 100 UNITS in Sodium Chloride 0.9% 100 ML IVPB SCH (11:45)
[2021-03-07] MEDS: hydrALAZINE 25 MG TAB PO SCH ×3 (12:00→20:57)
[2021-03-07] MEDS: hydrALAZINE 20 MG/ML VIAL SLOW IVP PRN (13:32)
[2021-03-07] MEDS ORDERED: Lantus 1000 UNITS/10 ML VIAL SC SCH (21:00)
[2021-03-07] MEDS ORDERED: Simvastatin 10 MG TAB PO SCH (21:00)
[2021-03-08] MEDS: D5 1/2 NS w/20 mEq KCL 1,000 ML IV PRN ×2 (00:15→06:08)
[2021-03-08] MEDS: Promethazine HCl 12.5 MG in Sodium Chloride 0.9% 50 ML IVPB PRN ×4 (00:15→18:14)
[2021-03-08] MEDS: hydrALAZINE 20 MG/ML VIAL SLOW IVP PRN ×2 (02:49→12:20)
[2021-03-08] MEDS: Ondansetron PF 4 MG/2 ML Vial IVP PRN ×3 (02:49→15:51)
[2021-03-08 04:01] LABS: #Lymphocytes 1.6 thou/uL (1.20-3.40); #Monocytes 0.7 thou/uL (0.11-0.59); #Neutrophils 7.6 thou/uL (1.40-6.50); %Basophils 0.2 % (0.0-1.0); %Eosinophils 0.4 % (0.0-10.0); %Lymphocytes 15.7 % (21.0-51.0); %Monocytes 7.3 % (0.0-10.0); %Neutrophils 76.4 % (42.0-75.0); Hemoglobin 9.1 g/dL (14.0-18.0); Mean Corpuscular HGB CONC 34.6 g/dL (32.0-36.0); Mean Corpuscular Hemoglobin 32.5 pg (27.0-31.0); Mean Platelet Volume 9.2 fL (7.4-10.4); Platelet Count 150 thou/uL (130-400); RBC Distribution Width 11.7 % (11.5-14.5); Red Blood Cell (RBC) Count 2.79 mill/uL (4.70-6.10)
[2021-03-08 04:17] LABS: Anion Gap 11 mmol/L (10-20); Carbon Dioxide 21 mmol/L (22-29); Chloride 109 mmol/L (98-107); Potassium 4.1 mmol/L (3.5-5.1); Sodium 137 mmol/L (136-145)
[2021-03-08 04:18] LABS: BUN (Urea Nitrogen) 37 mg/dL (8.9-20.6); Calc. Creatinine Clearance 52 mL/min (70-130); Calcium 7.8 mg/dL (7.8-10.44); Glucose 178 mg/dL (70-105)
[2021-03-08] MEDS: Enoxaparin Sodium 40 MG/0.4 ML SYRINGE SC SCH (07:51)
[2021-03-08] MEDS: Famotidine/PF 20 mg/2ml Vial SLOW IVP SCH (07:51)
[2021-03-08] MEDS: Aspirin Chewable 81 MG TAB PO SCH (07:51)
[2021-03-08] MEDS: NIFEdipine XL 90 MG TAB PO SCH (07:52)
[2021-03-08] MEDS: hydrALAZINE 25 MG TAB PO SCH ×4 (07:52→20:04)
[2021-03-08] MEDS ORDERED: HumaLOG 300 UNITS/3 ML VIAL SC PRN (09:10)
[2021-03-08] MEDS ORDERED: Lantus 1000 UNITS/10 ML VIAL SC SCH (09:15)
[2021-03-08] MEDS: Dextrose 5 %-0.45 % NaCl 1,000 ML IV SCH ×2 (09:40→17:43)
[2021-03-08] MEDS ORDERED: Metoclopramide 10 MG/10 ML UDCUP PO SCH (11:30)
[2021-03-08] MEDS ORDERED: Oxymetazoline HCl 0.05% (30 ML BOT) NS PRN (16:06)
[2021-03-08] MEDS: Lantus 1000 UNITS/10 ML VIAL SC SCH (20:06)
[2021-03-08] MEDS: Sodium Chloride 0.65% Nasal 44 ML BOT EA NARE SCH (20:36)
[2021-03-08] MEDS ORDERED: Pantoprazole 40 MG VIAL IVP SCH (21:00)
[2021-03-09] MEDS: Promethazine HCl 12.5 MG in Sodium Chloride 0.9% 50 ML IVPB PRN (00:08)
[2021-03-09 02:28] LABS: Amphetamine Not Detected (NotDetected); Barbiturates Screen Not Detected (NotDetected); Benzodiazepine Screen Not Detected (NotDetected); Cocaine Metabolite Screen Not Detected (NotDetected); Methadone Not Detected (NotDetected); Methamphetamine Not Detected (NotDetected); Opiate Screen Not Detected (NotDetected); Oxycodone Screen Not Detected (NotDetected); Phencyclidine (PCP) Not Detected (NotDetected); THC/Cannabinoid Screen Detected (NotDetected); Tricyclic Screen Not Detected (NotDetected)
[2021-03-09] MEDS: Dextrose 5 %-0.45 % NaCl 1,000 ML IV SCH ×2 (03:26→08:32)
[2021-03-09] MEDS: hydrALAZINE 20 MG/ML VIAL SLOW IVP PRN ×2 (03:26→08:42)
[2021-03-09 03:59] LABS: #Lymphocytes 1.3 thou/uL (1.20-3.40); #Monocytes 0.6 thou/uL (0.11-0.59); #Neutrophils 6.2 thou/uL (1.40-6.50); %Basophils 0.2 % (0.0-1.0); %Eosinophils 0.2 % (0.0-10.0); %Lymphocytes 15.7 % (21.0-51.0); %Monocytes 7.9 % (0.0-10.0); Hemoglobin 9.1 g/dL (14.0-18.0); Mean Corpuscular HGB CONC 34.2 g/dL (32.0-36.0); Mean Corpuscular Hemoglobin 32.2 pg (27.0-31.0); Mean Platelet Volume 9.1 fL (7.4-10.4); Platelet Count 137 thou/uL (130-400); RBC Distribution Width 11.7 % (11.5-14.5); Red Blood Cell (RBC) Count 2.83 mill/uL (4.70-6.10); White Blood Cell (WBC) Count 8.1 thou/uL (4.8-10.8)
[2021-03-09 04:10] LABS: Phosphorus 2.2 mg/dL (2.3-4.7)
[2021-03-09 04:13] LABS: Anion Gap 12 mmol/L (10-20); BUN (Urea Nitrogen) 28 mg/dL (8.9-20.6); Calc. Creatinine Clearance 57 mL/min (70-130); Calcium 7.7 mg/dL (7.8-10.44); Carbon Dioxide 20 mmol/L (22-29); Chloride 107 mmol/L (98-107); Glucose 319 mg/dL (70-105); Magnesium 1.6 mg/dL (1.6-2.6); Potassium 4.3 mmol/L (3.5-5.1); Sodium 135 mmol/L (136-145)
[2021-03-09] MEDS ORDERED: Promethazine HCl 25 MG/ML VIAL IM PRN (05:49)
[2021-03-09] MEDS: NIFEdipine XL 90 MG TAB PO SCH (08:29)
[2021-03-09] MEDS: Aspirin Chewable 81 MG TAB PO SCH (08:31)
[2021-03-09] MEDS: Sodium Chloride 0.65% Nasal 44 ML BOT EA NARE SCH ×2 (08:32→16:03)
[2021-03-09] MEDS: hydrALAZINE 25 MG TAB PO SCH ×3 (08:32→16:39)
[2021-03-09] MEDS: Lantus 1000 UNITS/10 ML VIAL SC SCH (08:32)
[2021-03-09] MEDS: Ondansetron PF 4 MG/2 ML Vial IVP PRN (08:37)
[2021-03-09] MEDS ORDERED: Magnesium Sulfate 2 GM in Sodium Chloride 0.9% 100 ML IVPB SCH (08:45)
[2021-03-09] MEDS ORDERED: Enoxaparin Sodium 30 MG/0.3 ML SYRINGE SC SCH (09:00)
[2021-03-09] MEDS ORDERED: Magnesium 2 GM/50 ML 2 GM in Premix Bag 1 BAG IVPB SCH (09:00)
[2021-03-09] MEDS: Sodium Bicarbonate 50 MEQ in Dextrose 5 %-0.45 % NaCl 1,000 ML IV SCH ×2 (10:19→19:42)
[2021-03-09] MEDS: HumaLOG 300 UNITS/3 ML VIAL SC PRN ×2 (12:30→16:39)
[2021-03-09] MEDS ORDERED: Metoclopramide HCl 10 MG/2 ML VIAL IVP SCH (14:00)
[2021-03-09 16:10] VITALS: BP 160/76; TEMP 99.3
[2021-03-09] MEDS ORDERED: Sodium Bicarbonate 50 MEQ in Dextrose 5 %-0.45 % NaCl 1,000 ML IV SCH (20:00)
== END 2021-03-09 21:10 | disposition left against medical advice (07) | DRG 638 ==
LOC: ERS 10:04 → SUATTDRO 10:04 → IMCU/EMU 13:10 → T4-B 03-09 15:25
PROVIDERS: ADMIT Internal Medicine Geriatric Medicine; ATTEND Internal Medicine
DX: E10.10 Type 1 diabetes mellitus with ketoacidosis without coma (principal); N18.4 Chronic kidney disease, stage 4 (severe); N17.9 Acute kidney failure, unspecified; E87.1 Hypo-osmolality and hyponatremia; E10.43 Type 1 diabetes mellitus with diabetic autonomic (poly)neuropathy; I12.9 Hypertensive chronic kidney disease with stage 1 through stage 4 chronic kidney disease, or unspecified chronic kidney disease; E10.22 Type 1 diabetes mellitus with diabetic chronic kidney disease; K31.84 Gastroparesis; E86.0 Dehydration; E83.42 Hypomagnesemia; D64.9 Anemia, unspecified; E10.21 Type 1 diabetes mellitus with diabetic nephropathy; E78.5 Hyperlipidemia, unspecified; F12.10 Cannabis abuse, uncomplicated; E83.39 Other disorders of phosphorus metabolism; Z89.512 Acquired absence of left leg below knee; Z87.891 Personal history of nicotine dependence; Z91.14 Patient's other noncompliance with medication regimen; Z79.4 Long term (current) use of insulin; Z79.82 Long term (current) use of aspirin; Z79.899 Other long term (current) drug therapy
CPT/HCPCS: 36415; 36416; 71045; 74018; 80048; 80053; 80306; 81003; 81015; 82010; 82553; 82805; 83690; 83735; 84100; 84484; 85025; 93005; 96361; 96365; 96366; 96367; 96375; C9113; J0360; J1650; J1815; J2405; J2550; J2765; J3475; J3480; J3490; J7030; J7042; J7050; S0028

== ENCOUNTER 2022-02-25 15:18 | Inpatient (IN) | payer OTHER ==
[2022-02-25 16:24] LABS: #Basophils 0.1 thou/uL (0.0-0.2); #Eosinphils 0.3 thou/uL (0.0-0.7); #Lymphocytes 1.7 thou/uL (1.20-3.40); #Monocytes 0.5 thou/uL (0.11-0.59); #Neutrophils 4.3 thou/uL (1.40-6.50); %Basophils 1.1 % (0.0-1.0); %Eosinophils 4.1 % (0.0-10.0); %Lymphocytes 24.4 % (21.0-51.0); %Monocytes 7.9 % (0.0-10.0); %Neutrophils 62.6 % (42.0-75.0); Hemoglobin 7.1 g/dL (14.0-18.0); Mean Corpuscular HGB CONC 32.9 g/dL (32.0-36.0); Mean Corpuscular Volume 97.4 fL (78.0-98.0); Mean Platelet Volume 8.7 fL (7.4-10.4); Platelet Count 171 thou/uL (130-400); RBC Distribution Width 11.9 % (11.5-14.5); White Blood Cell (WBC) Count 6.9 thou/uL (4.8-10.8)
[2022-02-25 16:32] LABS: ALT (SGPT) 15 U/L (8-55); AST (SGOT) 22 U/L (5-34); Albumin 3.6 g/dL (3.5-5.0); Alkaline Phosphatase 56 U/L (40-110); Anion Gap 15 mmol/L (10-20); BUN (Urea Nitrogen) 74 mg/dL (8.9-20.6); Bilirubin, Total 0.3 mg/dL (0.2-1.2); Calc. Creatinine Clearance 0 mL/min (70-130); Calcium 8.9 mg/dL (7.8-10.44); Carbon Dioxide 24 mmol/L (22-29); Chloride 105 mmol/L (98-107); Estimated GFR 7; Globulin 2.5 g/dL (2.4-3.5); Glucose 154 mg/dL (70-105); Potassium 4.6 mmol/L (3.5-5.1); Protein, Total 6.1 g/dL (6.0-8.3); Sodium 139 mmol/L (136-145)
[2022-02-25] MEDS ORDERED: Dextrose 50% Abboject 50 ML SYRINGE SLOW IVP PRN (18:08)
[2022-02-25] MEDS ORDERED: Ondansetron ODT 4 MG TAB PO PRN (18:08)
[2022-02-25] MEDS ORDERED: HumaLOG 300 UNITS/3 ML VIAL SC PRN (18:08)
[2022-02-25] MEDS ORDERED: Dextrose 5% in Water 1,000 ML IV PRN (18:08)
[2022-02-25] MEDS ORDERED: Acetaminophen 325 MG TAB PO PRN (18:08)
[2022-02-25] MEDS: hydrALAZINE 25 MG TAB PO SCH (20:46)
[2022-02-25 23:39] VITALS: BMI 26.2
[2022-02-26] MEDS: hydrALAZINE 20 MG/ML VIAL SLOW IVP PRN ×2 (03:30→15:49)
[2022-02-26] MEDS: Ondansetron PF 4 MG/2 ML Vial IVP PRN ×3 (04:06→19:44)
[2022-02-26 05:37] LABS: #Eosinphils 0.2 thou/uL (0.0-0.7)
[2022-02-26 05:51] LABS: Anion Gap 17 mmol/L (10-20); BUN (Urea Nitrogen) 70 mg/dL (8.9-20.6); Calc. Creatinine Clearance 18 mL/min (70-130); Calcium 8.6 mg/dL (7.8-10.44); Carbon Dioxide 19 mmol/L (22-29); Chloride 108 mmol/L (98-107); Estimated GFR 8; Glucose 137 mg/dL (70-105); Potassium 4.5 mmol/L (3.5-5.1); Sodium 139 mmol/L (136-145)
[2022-02-26 05:58] LABS: #Lymphocytes 1.3 thou/uL (1.20-3.40); #Monocytes 0.5 thou/uL (0.11-0.59); #Neutrophils 3.7 thou/uL (1.40-6.50); %Basophils 0.7 % (0.0-1.0); %Eosinophils 3.4 % (0.0-10.0); %Monocytes 9.5 % (0.0-10.0); %Neutrophils 64.4 % (42.0-75.0); Mean Corpuscular HGB CONC 32.7 g/dL (32.0-36.0); Mean Corpuscular Hemoglobin 31.8 pg (27.0-31.0); Mean Corpuscular Volume 97.1 fL (78.0-98.0); Platelet Count 167 thou/uL (130-400); Red Blood Cell (RBC) Count 2.51 mill/uL (4.70-6.10); White Blood Cell (WBC) Count 5.8 thou/uL (4.8-10.8)
[2022-02-26] MEDS ORDERED: CEFAZOLIN 2 GM in Sodium Chloride 0.9% 100 ML IVPB SCH (06:00)
[2022-02-26] MEDS: hydrALAZINE 25 MG TAB PO SCH ×3 (08:30→21:38)
[2022-02-26] MEDS: Insulin Glargine 30 UNITS/0.3 ML VIAL SC SCH (08:30)
[2022-02-26] MEDS ORDERED: Protamine Sulfate 50 MG/5 ML VIAL ONE (10:48)
[2022-02-26] MEDS ORDERED: Bupivacaine PF 0.5% 30 ML VIAL ONE (10:48)
[2022-02-26] MEDS ORDERED: Heparin 5,000 UNITS/ML VIAL ONE (10:48)
[2022-02-26] MEDS ORDERED: Heparin 10,000 UNITS/ 10 ML VIAL ONE (10:48)
[2022-02-26] MEDS ORDERED: fentaNYL Citrate/PF 100 MCG/2 ML SYRINGE ONE (11:09)
[2022-02-26] MEDS ORDERED: CEFAZOLIN 2 GM VIAL ONE (11:26)
[2022-02-26] MEDS ORDERED: Sodium Chloride 0.9% 100 ML ONE (11:26)
[2022-02-26] MEDS ORDERED: Glycopyrrolate 0.2 MG/ML 5 ML SYRINGE ONE (11:31)
[2022-02-26] MEDS ORDERED: Succinylcholine 200 MG/10 ml SYRINGE FS ONE (11:31)
[2022-02-26] MEDS ORDERED: Rocuronium Bromide 10 MG/ML (10ML VIAL) ONE (11:31)
[2022-02-26] MEDS ORDERED: Propofol 1,000 MG/100 ML VIAL IV ONE (11:31)
[2022-02-26] MEDS ORDERED: PHENYLEPHRINE-NS 100 MCG/ML 10 ML SYRINGE ONE (11:31)
[2022-02-26] MEDS ORDERED: NEOSTIGMINE 3 MG/3 ML SYR 3 MG/3 ML SYRINGE ONE (11:31)
[2022-02-26] MEDS ORDERED: Promethazine HCl 25 MG/ML VIAL IVPB PRN (12:33)
[2022-02-26] MEDS ORDERED: Promethazine HCl 25 MG/ML VIAL IM PRN (12:33)
[2022-02-26] MEDS ORDERED: Ondansetron HCl/PF 4 MG/2 ML Vial IVP PRN (12:33)
[2022-02-26] MEDS ORDERED: Promethazine HCl 25 MG/ML VIAL ONE (14:02)
[2022-02-26] MEDS: Furosemide 20 MG TAB PO SCH (17:22)
[2022-02-26] MEDS: Metoclopramide HCl 10 MG TAB PO SCH (17:22)
[2022-02-26] MEDS: NIFEdipine XL 90 MG TAB PO SCH (17:22)
[2022-02-26] MEDS: HumaLOG 300 UNITS/3 ML VIAL SC PRN (21:48)
[2022-02-27] MEDS: Ondansetron PF 4 MG/2 ML Vial IVP PRN ×2 (04:30→10:15)
[2022-02-27 05:03] LABS: #Lymphocytes 1.3 thou/uL (1.20-3.40); #Monocytes 0.8 thou/uL (0.11-0.59); #Neutrophils 11.6 thou/uL (1.40-6.50); %Basophils 0.1 % (0.0-1.0); %Eosinophils 0.1 % (0.0-10.0); %Lymphocytes 9.6 % (21.0-51.0); %Neutrophils 84.3 % (42.0-75.0); Hemoglobin 8.5 g/dL (14.0-18.0); Mean Corpuscular Hemoglobin 31.8 pg (27.0-31.0); Mean Corpuscular Volume 96.6 fL (78.0-98.0); Platelet Count 168 thou/uL (130-400); RBC Distribution Width 13.8 % (11.5-14.5); Red Blood Cell (RBC) Count 2.67 mill/uL (4.70-6.10); White Blood Cell (WBC) Count 13.8 thou/uL (4.8-10.8)
[2022-02-27 05:12] LABS: Anion Gap 25 mmol/L (10-20); BUN (Urea Nitrogen) 88 mg/dL (8.9-20.6); Calc. Creatinine Clearance 16 mL/min (70-130); Calcium 8.7 mg/dL (7.8-10.44); Carbon Dioxide 13 mmol/L (22-29); Chloride 102 mmol/L (98-107); Estimated GFR 6; Glucose 285 mg/dL (70-105); Potassium 4.4 mmol/L (3.5-5.1); Sodium 136 mmol/L (136-145)
[2022-02-27] MEDS: HumaLOG 300 UNITS/3 ML VIAL SC PRN ×3 (05:51→21:06)
[2022-02-27] MEDS ORDERED: Scopolamine 1.5 mg/72 hour Patch TOP SCH (08:30)
[2022-02-27] MEDS: hydrALAZINE 25 MG TAB PO SCH ×3 (10:19→21:23)
[2022-02-27] MEDS: Insulin Glargine 30 UNITS/0.3 ML VIAL SC SCH ×2 (10:19→16:18)
[2022-02-27] MEDS: Metoclopramide HCl 10 MG TAB PO SCH (10:21)
[2022-02-27] MEDS: Furosemide 20 MG TAB PO SCH (10:21)
[2022-02-27] MEDS: NIFEdipine XL 90 MG TAB PO SCH (10:21)
[2022-02-27] MEDS ORDERED: Pantoprazole 40 MG VIAL IVP SCH (10:30)
[2022-02-27] MEDS: Mag-Al 1200 mg/1200 mg/30 ML UDCUP PO PRN (11:57)
[2022-02-27] MEDS: Promethazine HCl 12.5 MG in Sodium Chloride 0.9% 50 ML IVPB PRN ×2 (12:11→20:16)
[2022-02-27] MEDS ORDERED: Sodium Bicarbonate 150 MEQ in Dextrose 5% in Water 1,000 ML IV SCH (15:15)
[2022-02-27] MEDS: hydrALAZINE 20 MG/ML VIAL SLOW IVP PRN ×2 (16:30→21:05)
[2022-02-28] MEDS: hydrALAZINE 20 MG/ML VIAL SLOW IVP PRN ×3 (00:29→12:52)
[2022-02-28] MEDS: Promethazine HCl 12.5 MG in Sodium Chloride 0.9% 50 ML IVPB PRN ×3 (04:06→16:25)
[2022-02-28 05:16] LABS: #Lymphocytes 0.9 thou/uL (1.20-3.40); #Monocytes 0.8 thou/uL (0.11-0.59); #Neutrophils 10.7 thou/uL (1.40-6.50); %Basophils 0.1 % (0.0-1.0); %Eosinophils 0.1 % (0.0-10.0); %Lymphocytes 7.4 % (21.0-51.0); %Monocytes 6.5 % (0.0-10.0); %Neutrophils 85.9 % (42.0-75.0); Hemoglobin 8.1 g/dL (14.0-18.0); Mean Corpuscular HGB CONC 32.7 g/dL (32.0-36.0); Mean Corpuscular Hemoglobin 31.3 pg (27.0-31.0); Mean Corpuscular Volume 95.7 fL (78.0-98.0); Mean Platelet Volume 8.9 fL (7.4-10.4); Platelet Count 146 thou/uL (130-400); RBC Distribution Width 13.4 % (11.5-14.5); Red Blood Cell (RBC) Count 2.58 mill/uL (4.70-6.10); White Blood Cell (WBC) Count 12.5 thou/uL (4.8-10.8)
[2022-02-28 06:04] LABS: Anion Gap 25 mmol/L (10-20); BUN (Urea Nitrogen) 100 mg/dL (8.9-20.6); Calc. Creatinine Clearance 14 mL/min (70-130); Calcium 7.8 mg/dL (7.8-10.44); Carbon Dioxide 15 mmol/L (22-29); Chloride 94 mmol/L (98-107); Estimated GFR 6; Glucose 269 mg/dL (70-105); Sodium 130 mmol/L (136-145)
[2022-02-28] MEDS: Insulin Glargine 30 UNITS/0.3 ML VIAL SC SCH (10:20)
[2022-02-28] MEDS: NIFEdipine XL 90 MG TAB PO SCH (10:21)
[2022-02-28] MEDS: hydrALAZINE 25 MG TAB PO SCH ×3 (10:21→20:38)
[2022-02-28] MEDS: HumaLOG 300 UNITS/3 ML VIAL SC PRN (11:52)
[2022-02-28] MEDS ORDERED: Ondansetron PF 4 MG/2 ML Vial IVP PRN (20:23)
[2022-02-28] MEDS: Labetalol HCl 100 MG/20 ML VIAL SLOW IVP PRN (20:32)
[2022-03-01] MEDS: Promethazine HCl 12.5 MG in Sodium Chloride 0.9% 50 ML IVPB PRN ×2 (01:28→11:03)
[2022-03-01 05:42] LABS: #Monocytes 0.9 thou/uL (0.11-0.59); #Neutrophils 8.7 thou/uL (1.40-6.50); %Basophils 0.2 % (0.0-1.0); %Eosinophils 0.2 % (0.0-10.0); %Lymphocytes 9.5 % (21.0-51.0); %Monocytes 8.5 % (0.0-10.0); %Neutrophils 81.5 % (42.0-75.0); Hemoglobin 8.7 g/dL (14.0-18.0); Mean Corpuscular HGB CONC 33.6 g/dL (32.0-36.0); Mean Corpuscular Hemoglobin 31.7 pg (27.0-31.0); Mean Corpuscular Volume 94.3 fL (78.0-98.0); Mean Platelet Volume 8.8 fL (7.4-10.4); Platelet Count 144 thou/uL (130-400); RBC Distribution Width 13.1 % (11.5-14.5); Red Blood Cell (RBC) Count 2.75 mill/uL (4.70-6.10); White Blood Cell (WBC) Count 10.7 thou/uL (4.8-10.8)
[2022-03-01 05:47] LABS: Anion Gap 19 mmol/L (10-20); BUN (Urea Nitrogen) 107 mg/dL (8.9-20.6); Calc. Creatinine Clearance 14 mL/min (70-130); Calcium 8.1 mg/dL (7.8-10.44); Carbon Dioxide 21 mmol/L (22-29); Chloride 95 mmol/L (98-107); Estimated GFR 6; Glucose 94 mg/dL (70-105); Potassium 3.3 mmol/L (3.5-5.1); Sodium 132 mmol/L (136-145)
[2022-03-01] MEDS ORDERED: Heparin 10,000 UNITS/ 10 ML VIAL ONE ×2 (08:31→12:52)
[2022-03-01] MEDS: Insulin Glargine 30 UNITS/0.3 ML VIAL SC SCH (11:03)
[2022-03-01] MEDS: NIFEdipine XL 90 MG TAB PO SCH (11:04)
[2022-03-01] MEDS: hydrALAZINE 25 MG TAB PO SCH ×3 (11:04→21:07)
[2022-03-01 11:44] LABS: HBSAB Concentration Less than 8.00 mIU/mL; HBSAg Index 0.46 S/CO (0-0.99); Hep B Surf AB Non-Reactive (NonReactive); Hep B Surf Ag Non-Reactive S/CO (NonReactive)
[2022-03-01] MEDS ORDERED: Midazolam HCl 2 mg/2 ml Vial ONE (11:59)
[2022-03-01] MEDS ORDERED: fentaNYL Citrate/PF 100 MCG/2 ML SYRINGE ONE (12:46)
[2022-03-01] MEDS ORDERED: EPINEPHrine 1 MG/ML AMP ONE (12:52)
[2022-03-01] MEDS ORDERED: Bupivacaine PF 0.5% 30 ML VIAL ONE (12:52)
[2022-03-01] MEDS ORDERED: CEFAZOLIN 2 GM VIAL ONE (13:09)
[2022-03-01] MEDS ORDERED: Sodium Chloride 0.9% 100 ML ONE (13:09)
[2022-03-01] MEDS ORDERED: Ondansetron PF 4 MG/2 ML Vial ONE (13:15)
[2022-03-01] MEDS ORDERED: Succinylcholine 200 MG/10 ml SYRINGE FS ONE (13:15)
[2022-03-01] MEDS ORDERED: PROPOFOL 200 MG/20 ML VIAL ONE (13:15)
[2022-03-01] MEDS ORDERED: Promethazine HCl 25 MG/ML VIAL IM PRN (14:12)
[2022-03-01] MEDS ORDERED: Ondansetron HCl/PF 4 MG/2 ML Vial IVP PRN (14:12)
[2022-03-01] MEDS ORDERED: Promethazine HCl 25 MG/ML VIAL IVPB PRN (14:12)
[2022-03-01] MEDS: Fentanyl 100 MCG/2 ML VIAL SLOW IVP PRN ×2 (18:54→21:08)
[2022-03-01] MEDS: hydrALAZINE 20 MG/ML VIAL SLOW IVP PRN ×2 (19:46→23:27)
[2022-03-02] MEDS: hydrALAZINE 20 MG/ML VIAL SLOW IVP PRN (05:09)
[2022-03-02] MEDS: Insulin Glargine 30 UNITS/0.3 ML VIAL SC SCH (08:20)
[2022-03-02] MEDS: hydrALAZINE 25 MG TAB PO SCH ×3 (08:39→20:22)
[2022-03-02] MEDS: NIFEdipine XL 90 MG TAB PO SCH (08:40)
[2022-03-02] MEDS: Promethazine HCl 12.5 MG in Sodium Chloride 0.9% 50 ML IVPB PRN (09:12)
[2022-03-02] MEDS ORDERED: Heparin 10,000 UNITS/ 10 ML VIAL ONE (13:44)
[2022-03-02] MEDS ORDERED: Tuberculin PPD 0.1 ML VIAL I-DERMAL SCH (14:45)
[2022-03-02] MEDS: Fentanyl 100 MCG/2 ML VIAL SLOW IVP PRN (16:00)
[2022-03-02 17:04] LABS: HBSAB Concentration Less than 8.00 mIU/mL; HBSAg Index 0.47 S/CO (0-0.99); Hep B Core Total Ab Non-Reactive (NonReactive); Hep B Core Total Index 0.13 S/CO (0-0.79); Hep B Surf AB Non-Reactive (NonReactive); Hep B Surf Ag Non-Reactive S/CO (NonReactive); Hep C IgG Ab Non-Reactive (NonReactive); Hep C Index 0.09 S/CO (0-0.79)
[2022-03-02] MEDS: Labetalol HCl 100 MG/20 ML VIAL SLOW IVP PRN (18:00)
[2022-03-02] MEDS ORDERED: Fentanyl 100 MCG/2 ML VIAL SLOW IVP SCH (22:00)
[2022-03-03] MEDS ORDERED: Tuberculin PPD 0.1 ML VIAL I-DERMAL SCH (07:45)
[2022-03-03 08:25] VITALS: BP 172/82; TEMP 98.6
[2022-03-03] MEDS: hydrALAZINE 25 MG TAB PO SCH (09:45)
[2022-03-03] MEDS: Insulin Glargine 30 UNITS/0.3 ML VIAL SC SCH (09:46)
[2022-03-03] MEDS: NIFEdipine XL 90 MG TAB PO SCH (09:48)
[2022-03-03] MEDS ORDERED: traMADol HCl 50 MG TAB PO PRN (10:44)
[2022-03-03 12:00] LABS: Anion Gap 15 mmol/L (10-20); BUN (Urea Nitrogen) 55 mg/dL (8.9-20.6); Calc. Creatinine Clearance 24 mL/min (70-130); Calcium 7.9 mg/dL (7.8-10.44); Carbon Dioxide 25 mmol/L (22-29); Chloride 98 mmol/L (98-107); Estimated GFR 11; Glucose 112 mg/dL (70-105); Potassium 3.4 mmol/L (3.5-5.1); Sodium 135 mmol/L (136-145)
[2022-03-03] MEDS: Mag-Al 1200 mg/1200 mg/30 ML UDCUP PO PRN (13:50)
[2022-03-04] MEDS ORDERED: READ PPD TEST SITE PO SCH (09:00)
== END 2022-03-03 15:25 | disposition home or self-care (01) | DRG 673 ==
LOC: ERS 15:18 → MSONC 17:32
PROVIDERS: ADMIT Internal Medicine; ATTEND Internal Medicine
PROC: 0WHG43Z Insertion of Infusion Device into Peritoneal Cavity, Percutaneous Endoscopic Approach (ICD-10-PCS; principal; 2022-02-26)
PROC: 30233N1 Transfusion of Nonautologous Red Blood Cells into Peripheral Vein, Percutaneous Approach (ICD-10-PCS; 2022-02-26)
PROC: 02H633Z Insertion of Infusion Device into Right Atrium, Percutaneous Approach (ICD-10-PCS; 2022-02-26)
PROC: B548ZZA Ultrasonography of Superior Vena Cava, Guidance (ICD-10-PCS; 2022-02-26)
PROC: 5A1D70Z Performance of Urinary Filtration, Intermittent, Less than 6 Hours Per Day (ICD-10-PCS; 2022-03-01)
PROC: 0JH63XZ Insertion of Tunneled Vascular Access Device into Chest Subcutaneous Tissue and Fascia, Percutaneous Approach (ICD-10-PCS; 2022-03-01)
PROC: 02HV33Z Insertion of Infusion Device into Superior Vena Cava, Percutaneous Approach (ICD-10-PCS; 2022-03-01)
PROC: B5181ZA Fluoroscopy of Superior Vena Cava using Low Osmolar Contrast, Guidance (ICD-10-PCS; 2022-03-01)
PROC: B548ZZA Ultrasonography of Superior Vena Cava, Guidance (ICD-10-PCS; 2022-03-01)
DX: I12.0 Hypertensive chronic kidney disease with stage 5 chronic kidney disease or end stage renal disease (principal); N18.6 End stage renal disease; E87.20 Acidosis, unspecified; E10.22 Type 1 diabetes mellitus with diabetic chronic kidney disease; E78.5 Hyperlipidemia, unspecified; D63.1 Anemia in chronic kidney disease; E10.43 Type 1 diabetes mellitus with diabetic autonomic (poly)neuropathy; K31.84 Gastroparesis; Z89.512 Acquired absence of left leg below knee; Z79.4 Long term (current) use of insulin; Z79.82 Long term (current) use of aspirin; Z79.899 Other long term (current) drug therapy; Z98.42 Cataract extraction status, left eye; Z98.41 Cataract extraction status, right eye
CPT/HCPCS: 36415; 36416; 36430; 71045; 71046; 74018; 80048; 80053; 85025; 86580; 86704; 86706; 86850; 86900; 86901; 87340; 90935; 93005; 93970; C1751; C1752; C1776; C9113; G0257; J0171; J0360; J0690; J1644; J1815; J2250; J2405; J2550; J2704; J2720; J3010; J3490; J7070; J7999; P9016; S0020